=== PATIENT | female | born 1990 | race Caucasian/White ===

== ENCOUNTER → 2019-07-09 10:28 | Outpatient (CLI) | payer BC, SELFPAY ==
[2019-07-09 08:43] VITALS: BMI 28.4
[2019-07-09 11:06] LABS: Absolute Lymphocyte Count 1.08 X10^3/uL (0.83-4.51); Absolute Neutrophil Count 4.6 X10^3/uL (2.0-7.7); Basophil# 0.04 X10^3/uL; Basophil% 0.7 % (0-1); Eosinophil# 0.01 X10^3/uL; Eosinophils% 0.2 % (0-5); Hematocrit 36.1 % (37-47); Hemoglobin 11.9 g/dL (12.0-15.0); Lymphocyte # 1.08 X10^3/ul (4.0); Lymphocyte % 17.8 % (19-41); Mean Corpuscular Hgb 28.1 pg (27.0-32.0); Mean Corpuscular Volume 85.1 fL (81-99); Mean Platelet Vol. 9.1 fl (6.2-12.0); Monocyte# 0.28 X10^3/uL; Monocyte% 4.6 % (0-10); NRBC Flagged by Analyzer 0 % (0-5); Neutrophil # 4.64 X10^3/uL (2.7-7.7); Neutrophil % 76.4 % (47-70); Platelet Count 207 K/mm3 (150-450); RBC Distribution Width CV 12.7 % (11.6-14.6); RBC Distribution Width SD 39.1 fl (35.1-43.9); Red Blood Count 4.24 M/mm3 (4.2-5.4); White Blood Count 6.1 K/mm3 (4.4-11.0)
[2019-07-09 12:05] LABS: HIV - WCH Non-Reactive (Nonreactive); Hepatitis B Surface Antigen Non-Reactive (Nonreactive); Hepatitis C Antibody Non-Reactive (Nonreactive); Rubella IgG 44.3 IU/mL
[2019-07-09 18:00] LABS: Amphetamine Urine VISTA NEGATIVE (<1000 ng/mL); Barbiturate Urine VISTA NEGATIVE (< 200 ng/mL); Benzodiazepine Urine VISTA NEGATIVE (< 200 ng/mL); Cocaine Urine VISTA NEGATIVE (< 300 ng/mL); Ecstacy Urine VISTA NEGATIVE (< 500 ng/mL); Methadone Urine VISTA NEGATIVE (< 300 ng/mL); PCP Urine VISTA NEGATIVE (< 25 ng/mL); THC Urine VISTA NEGATIVE (< 50 ng/mL); Vista UDS pH Range 5
[2019-07-09 18:40] LABS: Chlamydia Trachomatis by PCR Negative (Negative); Neisserai gonorrhoeae by PCR Negative (Negative); Probe Check PASS; Sample Adequacy Control PASS; Specimen Processing Control PASS
[2019-07-12 00:26] LABS: Rapid Plasmin Reagin (RPR) NONREACTIVE (NONREACTIVE)
== END ==
PROVIDERS: Referring Provider Obstetrics & Gynecology; Visit Provider Obstetrics & Gynecology
DX: Z34.00 Encounter for supervision of normal first pregnancy, unspecified trimester (principal)
CPT/HCPCS: 36415; 80307; 85025; 86592; 86703; 86762; 86803; 86850; 86900; 86901; 87086; 87088; 87340; 87491; 87591

== ENCOUNTER → 2019-10-29 15:54 | Outpatient (CLI) | payer BC, SELFPAY ==
[2019-10-29 15:29] VITALS: BMI 28.4
== END ==
PROVIDERS: Referring Provider Obstetrics & Gynecology; Visit Provider Obstetrics & Gynecology
DX: O35.9XX0 Maternal care for (suspected) fetal abnormality and damage, unspecified, not applicable or unspecified (principal); Z3A.00 Weeks of gestation of pregnancy not specified
CPT/HCPCS: 36415

== ENCOUNTER → 2019-11-30 08:45 | Outpatient (CLI) | payer BC, SELFPAY ==
[2019-11-30 08:41] VITALS: BMI 28.4
[2019-11-30 10:10] LABS: Absolute Lymphocyte Count 0.84 X10^3/uL (0.83-4.51); Absolute Neutrophil Count 6.1 X10^3/uL (2.0-7.7); Basophil# 0.02 X10^3/uL; Basophil% 0.3 % (0-1); Eosinophil# 0.06 X10^3/uL; Eosinophils% 0.8 % (0-5); Hematocrit 31.5 % (37-47); Hemoglobin 10.3 g/dL (12.0-15.0); Lymphocyte # 0.84 X10^3/ul (4.0); Lymphocyte % 11.4 % (19-41); Mean Corp Hgb Conc 32.7 g/dL (32-36); Mean Corpuscular Hgb 29.1 pg (27.0-32.0); Mean Platelet Vol. 9.2 fl (6.2-12.0); Monocyte# 0.31 X10^3/uL; Monocyte% 4.2 % (0-10); NRBC Flagged by Analyzer 0 % (0-5); Neutrophil # 6.09 X10^3/uL (2.7-7.7); Neutrophil % 82.4 % (47-70); Platelet Count 174 K/mm3 (150-450); RBC Distribution Width CV 12.5 % (11.6-14.6); RBC Distribution Width SD 40.9 fl (35.1-43.9); Red Blood Count 3.54 M/mm3 (4.2-5.4); White Blood Count 7.4 K/mm3 (4.4-11.0)
[2019-11-30 10:48] LABS: Glucose Challenge Gest 1H 50g 129 mg/dL (70-140)
[2019-11-30 14:35] LABS: Protein, Urine (Random) 19.3 mg/dL (<11.9); Protein:Creat Ratio 213 mg/g CRE (0-200)
== END ==
PROVIDERS: PCP Family Medicine; Referring Provider Obstetrics & Gynecology; Visit Provider Obstetrics & Gynecology
DX: Z34.90 Encounter for supervision of normal pregnancy, unspecified, unspecified trimester (principal); Z34.00 Encounter for supervision of normal first pregnancy, unspecified trimester
CPT/HCPCS: 36415; 82570; 82950; 84156; 85025

== ENCOUNTER → 2019-12-28 08:25 | Outpatient (CLI) | payer BC, SELFPAY ==
[2019-12-28 08:01] VITALS: BMI 34.5
[2019-12-28 08:41] LABS: Absolute Lymphocyte Count 0.85 X10^3/uL (0.83-4.51); Basophil# 0.02 X10^3/uL; Basophil% 0.3 % (0-1); Eosinophil# 0.05 X10^3/uL; Eosinophils% 0.8 % (0-5); Hematocrit 33.3 % (37-47); Hemoglobin 10.7 g/dL (12.0-15.0); Lymphocyte # 0.85 X10^3/ul (4.0); Lymphocyte % 13.2 % (19-41); Mean Corp Hgb Conc 32.1 g/dL (32-36); Mean Corpuscular Hgb 28.6 pg (27.0-32.0); Mean Platelet Vol. 9.2 fl (6.2-12.0); Monocyte% 6.2 % (0-10); NRBC Flagged by Analyzer 0 % (0-5); Neutrophil # 5.04 X10^3/uL (2.7-7.7); Neutrophil % 78.6 % (47-70); Platelet Count 149 K/mm3 (150-450); RBC Distribution Width CV 13.2 % (11.6-14.6); RBC Distribution Width SD 43.3 fl (35.1-43.9); Red Blood Count 3.74 M/mm3 (4.2-5.4); White Blood Count 6.4 K/mm3 (4.4-11.0)
== END ==
PROVIDERS: PCP Family Medicine; Referring Provider Obstetrics & Gynecology; Visit Provider Obstetrics & Gynecology
DX: O99.012 Anemia complicating pregnancy, second trimester (principal); Z3A.00 Weeks of gestation of pregnancy not specified
CPT/HCPCS: 36415; 85025

== ENCOUNTER → 2020-01-25 16:41 | Outpatient (CLI) | payer BC, SELFPAY ==
[2020-01-25 08:04] VITALS: BMI 36.2
== END ==
PROVIDERS: Referring Provider Obstetrics & Gynecology; Visit Provider Obstetrics & Gynecology
DX: O09.93 Supervision of high risk pregnancy, unspecified, third trimester (principal); Z3A.00 Weeks of gestation of pregnancy not specified
CPT/HCPCS: 87077; 87081; 87186

== ENCOUNTER → 2020-01-31 08:22 | Outpatient (CLI) | payer BC, SELFPAY ==
[2020-01-31 08:04] VITALS: BMI 28.4
[2020-01-31 08:38] LABS: Absolute Lymphocyte Count 0.96 X10^3/uL (0.83-4.51); Basophil# 0.02 X10^3/uL; Basophil% 0.3 % (0-1); Eosinophil# 0.06 X10^3/uL; Eosinophils% 0.9 % (0-5); Hematocrit 33.5 % (37-47); Hemoglobin 10.7 g/dL (12.0-15.0); Lymphocyte # 0.96 X10^3/ul (4.0); Lymphocyte % 15.1 % (19-41); Mean Corp Hgb Conc 31.9 g/dL (32-36); Mean Corpuscular Hgb 28.2 pg (27.0-32.0); Mean Corpuscular Volume 88.2 fL (81-99); Mean Platelet Vol. 9.5 fl (6.2-12.0); Monocyte# 0.31 X10^3/uL; Monocyte% 4.9 % (0-10); NRBC Flagged by Analyzer 0 % (0-5); Neutrophil # 4.97 X10^3/uL (2.7-7.7); Neutrophil % 78.2 % (47-70); Platelet Count 153 K/mm3 (150-450); RBC Distribution Width CV 13.3 % (11.6-14.6); RBC Distribution Width SD 43.2 fl (35.1-43.9); White Blood Count 6.4 K/mm3 (4.4-11.0)
== END ==
PROVIDERS: Obstetrics & Gynecology; PCP Family Medicine; Referring Provider Nurse Practitioner Women's Health; Visit Provider Nurse Practitioner Women's Health
DX: O09.93 Supervision of high risk pregnancy, unspecified, third trimester (principal); Z3A.00 Weeks of gestation of pregnancy not specified
CPT/HCPCS: 36415; 85025

== ENCOUNTER → 2020-02-13 09:10 | Outpatient (CLI) | payer BC, SELFPAY ==
[2020-01-31 08:04] VITALS: BMI 28.4
[2020-02-08 08:06] VITALS: BMI 28.4
== END ==
PROVIDERS: PCP Family Medicine; Referring Provider Obstetrics & Gynecology; Visit Provider Obstetrics & Gynecology
DX: Z11.59 Encounter for screening for other viral diseases (principal)
CPT/HCPCS: 87635; C9803; U0003

== ENCOUNTER 2020-02-19 | Inpatient (IN) | payer BC, SELFPAY ==
[2020-01-31 08:04] VITALS: BMI 28.4
[2020-02-15 08:39] VITALS: BMI 28.4
[2020-02-19] VITALS (49 sets, daily range): BP systolic 102–145; BP diastolic 54–94; PULSE 71–127; RESP 16–18; TEMP 36.2–37.3; O2SAT 92–100; BMI 37.5
[2020-02-19] MEDS: Lactated Ringers 1,000 ML 200 ML IV ×2 (00:30→08:09)
[2020-02-19] MEDS: Lactated Ringers 500 ML 999 ML IV ×2 (00:45→05:32)
[2020-02-19 00:49] LABS: Absolute Lymphocyte Count 1.16 X10^3/uL (0.83-4.51); Absolute Neutrophil Count 4.7 X10^3/uL (2.0-7.7); Basophil# 0.02 X10^3/uL; Basophil% 0.3 % (0-1); Eosinophil# 0.04 X10^3/uL; Eosinophils% 0.6 % (0-5); Hematocrit 31.7 % (37-47); Hemoglobin 10.1 g/dL (12.0-15.0); Lymphocyte # 1.16 X10^3/ul (4.0); Lymphocyte % 17.6 % (19-41); Mean Corp Hgb Conc 31.9 g/dL (32-36); Mean Corpuscular Hgb 28.1 pg (27.0-32.0); Mean Corpuscular Volume 88.3 fL (81-99); Mean Platelet Vol. 10.5 fl (6.2-12.0); Monocyte# 0.53 X10^3/uL; Monocyte% 8.1 % (0-10); NRBC Flagged by Analyzer 0 % (0-5); Neutrophil # 4.73 X10^3/uL (2.7-7.7); Neutrophil % 71.9 % (47-70); Platelet Count 133 K/mm3 (150-450); RBC Distribution Width CV 13.4 % (11.6-14.6); RBC Distribution Width SD 43.7 fl (35.1-43.9); Red Blood Count 3.59 M/mm3 (4.2-5.4); White Blood Count 6.6 K/mm3 (4.4-11.0)
[2020-02-19] MEDS: fentaNYL-bupivacaine (epidural) 100 ML BAG EPIDURAL ×3 (01:58→13:37)
[2020-02-19] MEDS: 0.9% Saline Lock 10 ML Syringe IV ×2 (04:15→21:34)
[2020-02-19] MEDS: Ondansetron 4 MG/2 ML Vial IV (04:15)
--- NOTE | 2020-02-19 04:48 | PCM.RX.CS ---
Consult Pharmacy has been consulted to manage selected antiobiotic: Vancomycin Type of Consult: New start Suspected Infection: Other Goal Trough: 10-15 mcg/mL Pharmacy Plan for Drug Dosing: Pharmacy Service will continue to monitor and adjust dosing as required. Medications Vancomycin HCl 2,000 mg/ (Sodium Chloride) 540 mls @ 250 mls/hr IV Q8H WILVER Last Admin: 02/19/20 04:45 Dose: Infused Documented by: Follow-Up Labs: Trough Vancomycin Labs to be done on [date and time ordered]: 02/19 @ 0030
--- NOTE | 2020-02-19 07:23 | HP.PCM_ITS ---
- Problem List (1) 38 weeks gestation of Status: Acute Comment: COVID testing ordered sc (2) Anemia affecting in second trimester Status: Acute Comment: iron. stable. (3) pyelectasis Status: Acute Comment: Left renal mild pelviectasis with AP diameter at 5.6mm. 28 week FU US/ Treatment Center. 28 wk result UTD A2-3, FU q4wks Biometric parameters and renals @ treatment center, FU stable, amoxicillin 10mg/kg per day, renal US within 1 mo after (4) GBS (group B Streptococcus carrier), +RV culture, currently Status: Acute Comment: allergy to PCN, resistant to clinda - vanc for ppx in labor (5) Influenza vaccine administered Status: Acute Comment: 01/11/2020 (6) Status: Acute Qualifiers: Comment: NIPT low risk. declined carrier and NTD testing; anatomy scan reviewed. (7) Supervision of high risk in third trimester Status: Acute Comment: PRR KEMAR: 02/15/2020 boy [place] Spouse: Daniel (8) Susceptible to varicella (non-immune), currently Status: Acute Comment: received vaccine in past, plan vaccine again History and Physical Date of Admission: 02/19/20 Intake Vital Signs 02/15/20 Height 5 ft 6 in 02/15/20 Weight: 246 lb 02/15/20 BMI 39.6 02/15/20 BP 138/70 H Intake Visit Reasons: 39WK OB Sales Support Assistant Required: No Is patient in pain?: No Allergies amoxicillin Allergy (Intermediate, Verified 02/15/20 08:05) Rash Medications multivitamin no.47-iron fum 27 mg-folate no.1 1 mg-dha 300 mg capsule cap PO 07/09/19 [History Confirmed 02/15/20] Last Menstral Period: 05/11/19 Zika: Zika virus screening: Negative : No PFSH PFSH Medical History ADHD (Acute) Surgical History No significant past surgical history (Acute) Family History Father Hypertension CVA (cerebral vascular accident) Uncle Cancer Leukemia Social History (Updated 02/15/20 @ 08:[address] Ally Tony MD) adopted: No household members: spouse housing: apartment current occupational status: employed current occupation: [employer] current occupational exposures/hazards: No pets and animals: Yes history of recent travel: No sexually active: Yes Smoking Status: Never smoker second hand exposure: No alcohol intake: current alcohol intake frequency: holidays/special occasions only details: Not while pregancy substance use type: does not use seatbelt use: always do you feel safe at home: Yes additional social history: Daniel- FA Pregancy History 1 Elective abortions Hx Para Spontaneous abortions Hx # Term Pregnancies Ectopic pregnancies Hx # Pregnancies Multiple births # of living children HPI 39WK OB : Details: LISANDRA WALLACE is a 29 year old @ 40 weeks presents IAL with SROm clear fluid, increasing contractions. She has made cervicla change from 3-5 cm. Her has been complicated by mild pyelectasis and increased abdominal circumference. OB Visit KEMAR Calculator Estimated Delivery Date Method Current WG Current Estimate 02/15/20 LMP (Certain) 40w 0d Other Estimates 02/16/20 Ultrasound #1 39w 6d Expected Delivery Route/Plan Labor Preferences- CB/BF classes: january labor support person: daniel labor intervention preferences: open to all, baseline minimal pain management options preferred: epidural cut cord/dad catch: cut : yes PP control planned:pill discussed possible routes of delivery and associated risks: discussed possible delivery modalities and possible indications for each including R/B/A of , VAVD, and CS. questions answered. special requests: none . Specific Issue/Plans flu vaccine: given tdap vaccine: given rhogam: na LARC form signed: declined movement and labor precautions reviewed. Problem list reviewed and updated with the most current plan of care details and appropriate orders placed. Relevant counseling for the gestational age provided. Continue routine care and follow up unless otherwise noted in visit notes/problem list details Initial Weight: 187 lb Date EGA Weight BP Urine Prot Glucose FHR FuHt Pres Dilation Effaced St Visit Note 08/08/19 12w 5d 188 lb (+16 oz) 126/84 Negative Negative 156 MH-No Vb, LOF. Reviewed normal PNL. Will need varicella vaccine p delivery. Still considering NIPT. 09/05/19 16w 5d 193 lb 6 oz (+6 lb 6 oz) 118/76 Negative Negative 145 Sm- no vb lof cramping. scheduled anatomy scan. 10/03/19 20w 5d 201 lb (+14 lb) 124/80 Negative Negative 156 20 MH-had a pinpoint spot of blood on tissue yesterday morning and none since. No cramping,lof. Good FM. Reassured. Anatomy US with MFM tomorrow 10/29/19 24w 3d 215 lb (+28 lb) 120/66 Negative Negative 150 25 SM- no vb lof good fm no reg ctx 11/30/19 29w 0d 220 lb 6 oz (+33 lb 6 oz) 144/78 128/70 Trace Negative 140 30 SM- no vb lof good fm no regular ctx SM- no vb lof good fm no regular ctx. discussed nutrition in . initial bp elevated- repeat WNL 12/28/19 33w 0d 227 lb 6 oz (+40 lb 6 oz) 122/78 Negative Negative 140 33 SM- no vb lof good fm no regular ctx 01/11/20 35w 0d 234 lb (+47 lb) 150/72 126/84 140 37 SM- no vb lof good fm no rgular ctx, discussed labor preferences. flu vaccine 01/25/20 37w 0d 238 lb 6 oz (+51 lb 6 oz) 130/82 Negative Negative 135 37 Cephalic 1 60 -2 GP - no LOF, vb, DFM. Mor e pressure but no reg ctx. 01/31/20 37w 6d 241 lb (+54 lb) 136/80 Negative Negative 156 38 Cephalic 1.5 60 -2 MH-NO VB, LOF. Mild edema bilat feet. NO NORIEGA. Good FM. MH-NO VB, LOF. Mild edema bilat feet. NO NORIEGA. Good FM. Reviewed +GBS. CBC 02/08/20 39w 0d 242 lb (+55 lb) Negative Negative 150 40 Cephalic 2 60 -2 Sm- no vb lof good fm no regular ctx. covid testing neg. plan repeat covid this week 02/15/20 40w 0d 246 lb (+59 lb) 138/70 Negative Negative 125 42 Cephalic 2.5 60 -2 SM- no vb lof good fm no regular ctx. discussed exp mgt and IOL 41 weeks ACOG First Trimester First Trimester: Desire for , Alcohol, Tobacco Cessation, Illicit/Recreational Drug/Substance Use, Intimate Partner Violence, Barriers to care, Unstable Housing, Communication Barriers, Environmental/Work Hazards, Anticipated Course of Care, Toxoplasmosis Precations, Use of Any medications, Sexual activity, Exercise, Dental Care, Sauna/Hot tub use, Seat Belt use, Childbirth classes/Hospital facilities, , Travel, Indications for US and Screening for Aneuploidy Second Trimester Second Trimester: Signs and Symptoms of Labor, Selecting a care provider, Reproductive Life Planning, Care Planning, Tobacco Cessation, Depression/Anxiety and Intimate Partner Violence Third Trimester Third Trimester: Pain Management Plans, Labor support person(s), Immediate Larc, Movement Monitoring and Feeding Yes ; discussed Trial of Labor after Counseling or discussed Circumcision preference Diagnostics Diagnostics Diagnostics Glucose 1 Hr 50 gm 129 mg/dL (70-140) 11/30/19 Hgb 10.7 g/dL (12.0-15.0) L 01/31/20 Hct 33.5 % (37-47) L 01/31/20 Details: HIV: Urine Culture: Sequential Screen: NIPT Screen: ROS Const Reports system reviewed and no additional complaints, except as docu Card Reports system reviewed and no additional complaints, except as docu Resp Reports system reviewed and no additional complaints, except as docu GI Reports system reviewed and no additional complaints, except as docu, Reports nausea Reports system reviewed and no additional complaints, except as docu Musc Reports system reviewed and no additional complaints, except as docu Exam Const General: cooperative, healthy appearing, comfortable, anxious [facility] Head: normal to inspection Nose: external nose normal Face and sinus: normal facial exam Neck Neck: normal visual inspection, full ROM, no lymphadenopathy Thyroid: thyroid normal Chest Chest palpation & inspection: normal inspection of the chest Resp Effort & Inspection: normal respiratory effort GI Inspection: normal to inspection Palpation: soft, other (gravid uterus) Other: infant vertex and large size for gestational age Other: Cervical Exam: Extrem General: pedal edema Results POC Urinalysis 2 Dip (Clinic) Office Urine Glucose Negative Last Edit by Steffany Pearl on 02/15/20 08:09 Office Urine Protein Negative Last Edit by Steffany Pearl on 02/15/20 08:09 Assessment & Plan Problems 1. Z34.90 NIPT low risk. declined carrier and NTD testing; anatomy scan reviewed. 2. Susceptible to varicella (non-immune), currently O09.899; Z28.3 received vaccine in past, plan vaccine again 3. pyelectasis Left renal mild pelviectasis with AP diameter at 5.6mm. 28 week FU US/ Treatment Center. 28 wk result UTD A2-3, FU q4wks Biometric parameters and renals @ treatment center, FU stable, amoxicillin 10mg/kg per day, renal US within 1 mo after 4. Anemia affecting in second trimester O99.012 iron. stable. 5. Supervision of high risk in third trimester O PRR KEMAR: 02/15/2020 [place] Spouse: Daniel 6. Influenza vaccine administered Z23 01/11/2020 7. GBS (group B Streptococcus carrier), +RV culture, currently O99.820 allergy to PCN, resistant to clinda - vanc for ppx in labor 8. 38 weeks gestation of Z3A.38 COVID testing ordered sc Plan Patient presents IAL, plan management for Pain management: plans epidural. GBS pos- plan vancomycin Management of any complications: pyelecatsis, EFW approx 4250g I have reviewed the [facility] and made any clinically relevant updates. Orders Orders: POC Urinalysis 2 Dip (Clinic) Today Coding Level of Care Code OB Routine Diagnoses Z34.90 Susceptible to varicella (non-immune), currently O09.899; Z28.3 pyelectasis Anemia affecting in second trimester O99.012 Supervision of high risk in third trimester O Influenza vaccine administered Z23 GBS (group B Streptococcus carrier), +RV culture, currently O99.820 38 weeks gestation of Z3A.38
--- NOTE | 2020-02-19 09:08 | PCM.PN.BLA ---
STROKE Vital Signs/Narrative: Vital Signs Pulse BP Pulse Ox 02/19/20 08:09 83 126/66 H 02/19/20 07:26 99 100 02/19/20 07:25 88 143/72 H 02/19/20 05:52 105 H 98
[2020-02-19] MEDS: Sodium Citrate/Citric Acid 30 ML UDC PO (15:04)
[2020-02-19] MEDS: Cefazolin 2 GM in 0.9% Normal Saline 100 ML IV (15:15)
--- NOTE | 2020-02-19 16:38 | OP.PCM_ITS ---
Problem List (1) 38 weeks gestation of Status: Acute Comment: COVID testing ordered sc (2) Anemia affecting in second trimester Status: Acute Comment: iron. stable. (3) pyelectasis Status: Acute Comment: Left renal mild pelviectasis with AP diameter at 5.6mm. 28 week FU US/ Treatment Center. 28 wk result UTD A2-3, FU q4wks Biometric parameters and renals @ treatment center, FU stable, amoxicillin 10mg/kg per day, renal US within 1 mo after (4) GBS (group B Streptococcus carrier), +RV culture, currently Status: Acute Comment: allergy to PCN, resistant to clinda - vanc for ppx in labor (5) Influenza vaccine administered Status: Acute Comment: 01/11/2020 (6) Status: Acute Qualifiers: Comment: NIPT low risk. declined carrier and NTD testing; anatomy scan reviewed. (7) Supervision of high risk in third trimester Status: Acute Comment: PRR KEMAR: 02/15/2020 boy [place] Spouse: Isra (8) Susceptible to varicella (non-immune), currently Status: Acute Comment: received vaccine in past, plan vaccine again (9) Failure of descent in labor, delivered, current hospitalization Status: Acute Delivery Classification: GIANNA Final KEMAR: 02/15/20 Gestational age: 40 Weeks and 4 Days watershed engineer: Faye Stringer Type of Anesthesia:: Epidural Special Medications: none Implants Used: none Date of Procedure: 02/19/20 Pre-Operative Diagnosis: Arrest of descent, suspected large for gestational age Post-Operative Diagnosis: Same Indications for : Arrrest of Descent Description of Procedure: 29-year-old G1, P0 at 40 weeks 4 days presents with spontaneous labor and spontaneous rupture membranes. Patient presented 3 cm and proceeded to complete dilation in an appropriate and timely fashion without augmentation. Patient labor down for an hour and then began pushing. Epidural was turned down to aid with maternal effort and was confirmed to be effective. head was at the +1 station with a small amount of capit prior to pushing and after 4 hours the skull was still at the +1 station with a significant amount of capit. Arrest of descent was diagnosed and discussed with the patient and recommended to proceed with primary to which the patient and her agreed. The patient was placed in the dorsal supine position with leftward tilt. Patient was prepped and draped in the normal sterile fashion. Pfannenstiel skin incision was made with the scalpel and carried through to the underlying layer of fascia with the scalpel. Fascia was nicked in the midline and the incision extended laterally. The rectus bellies were dissected off superiorly and inferiorly with out complication both sharply and bluntly. The peritoneum was entered digitally. The incision was stretched and a low transverse uterine incision was made with the scalpel. The infant's head was delivered atraumatically followed by the anterior and posterior shoulders without complication the rest of the infant delivered. The cord was clamped and cut and the infant was handed off to awaiting nurse. The placenta was delivered spontaneously immediately following and was noted to be intact and have a three- vessel cord. The uterus was exteriorized cleared of all clots and debris, and the incision was closed in a double layer closure using #1 Monocryl. The ovaries and fallopian tubes were noted to be within normal limits. The uterus was returned to the maternal abdomen and gutters were cleared of all clots and debris. The peritoneum was closed with 3-0 Monocryl in a running fashion. Gloves were changed prior to fascial closure. Fascia was closed with 0 PDS in a running fashion. Subcutaneous tissue was copiously irrigated and the skin was closed with 3-0 Monocryl in a subcuticular fashion. Mepilex dressing was applied without complication. Patient was taken to recovery in stable condition. It was discussed with the patient that based on the clinical information obtained during this encounter, combined with her history, at this time I would recommend cesareans unless a drastically smaller estimated weight is suspected for future deliveries if further pregnancies are desired. Amniotic Membrane Rupture Type: Spontaneous Amniotic Fluid Description: Clear Placenta Disposition: [facility] Drain: Perales to straight drain Fluids Replaced: Crystalloid Cord Entanglement: None Cord Vessel Description: 3 Vessels Esitmated Blood Loss (ml): 900 Infant Gender: Male Delayed cord clamping: Yes Antibiotic Given: Ancef 2 grams IV x1, Zithromax 500 mg/5 mL X1 Pt instructed on risks of surgery: Bleeding, Anesthesia Risks, Infection, Need for Future C-Sections, Injury to surrounding structure(s) including bowel and bladder Complications: None - Admit VTE Documentation VTE Present on Admission: No VTE Mechan Device Prophylaxis: SCD's Multi Select Codes - Urinary/Genital Urinary/Genital CPT Codes: 62479 Delivery [facility]
[2020-02-19] MEDS: Oxytocin 30 units/NS 500 ml 30 UNITS/500 ML IV.SOLN 167 UNITS IV (17:03)
[2020-02-19] MEDS: Methylergonovine 0.2 MG/ML Ampul IM (17:06)
[2020-02-19] MEDS: Acetaminophen 500 MG Tablet 1000 MG PO (19:02)
--- NOTE | 2020-02-19 19:29 | NURSING ---
flory pad and under [pad changed, eugenio mcfarlane shown bleeding and swelling.
[2020-02-19] MEDS: Lactated Ringers 1,000 ML 100 ML IV (20:15)
[2020-02-19] MEDS: Ketorolac 30 MG/ML Syringe IV (21:34)
--- NOTE | 2020-02-19 23:21 | NURSING ---
Call placed to Dr. Tony about patient's mepilex dressing as it is about 50% saturated with sanguineous drainage. Per Dr. Tony, change mepilex dressing, apply ABD pads, and apply pressure with paper tape hip to hip. Then, put abdominal binder on patient as well per Dr. Tony. Dressing was changed, ABD pads, paper tape, and abdominal binder applied as ordered by Dr. Tony. Upon removal of old dressing, 2 steri strips came off. No active bleeding noted. Incision was without redness or swelling and well approximated.
[2020-02-20] VITALS (11 sets, daily range): BP systolic 101–132; BP diastolic 58–77; PULSE 75–102; RESP 16–18; TEMP 36.2–37; O2SAT 95–100
[2020-02-20] MEDS: Acetaminophen 500 MG Tablet 1000 MG PO ×4 (00:52→19:59)
[2020-02-20] MEDS: 0.9% Saline Lock 10 ML Syringe IV ×2 (03:50→10:52)
[2020-02-20] MEDS: Ketorolac 30 MG/ML Syringe IV ×2 (03:50→10:51)
[2020-02-20] MEDS: Enoxaparin 40 MG/0.4 ML Syringe SC ×2 (04:15→10:51)
[2020-02-20 04:40] LABS: Hematocrit 25.6 % (37-47); Hemoglobin 8.3 g/dL (12.0-15.0); Mean Corp Hgb Conc 32.4 g/dL (32-36); Mean Corpuscular Hgb 28.9 pg (27.0-32.0); Mean Corpuscular Volume 89.2 fL (81-99); Mean Platelet Vol. 10.3 fl (6.2-12.0); Platelet Count 107 K/mm3 (150-450); RBC Distribution Width CV 13.9 % (11.6-14.6); RBC Distribution Width SD 45.1 fl (35.1-43.9); Red Blood Count 2.87 M/mm3 (4.2-5.4); White Blood Count 7.7 K/mm3 (4.4-11.0)
--- NOTE | 2020-02-20 07:33 | PCM.PN.OB ---
Patient Problems: Active and Suspected Problems (Last Reviewed 02/15/20 @ 08:06 by Steffany Pearl) Failure of descent in labor, delivered, current hospitalization (Acute) 38 weeks gestation of (Acute) COVID testing ordered sc GBS (group B Streptococcus carrier), +RV culture, currently (Acute) allergy to PCN, resistant to clinda - vanc for ppx in labor Influenza vaccine administered (Acute) 01/11/2020 Supervision of high risk in third trimester (Acute) PRR KEMAR: 02/15/2020 boy [place] Spouse: Isra Anemia affecting in second trimester (Acute) iron. stable. pyelectasis (Acute) Left renal mild pelviectasis with AP diameter at 5.6mm. 28 week FU US/ Treatment Center. 28 wk result UTD A2-3, FU q4wks Biometric parameters and renals @ treatment center, FU stable, amoxicillin 10mg/kg per day, renal US within 1 mo after Susceptible to varicella (non-immune), currently (Acute) received vaccine in past, plan vaccine again (Acute) NIPT low risk. declined carrier and NTD testing; anatomy scan reviewed. Subjective: patient recovering well, denies CP, SOB, N, or V. patient is ambulating, voiding ,tolerating adequate po, and pain is controlled with oral medications. - Physical Exam Vitals/I&O's: Vital Signs Temp Pulse Resp BP Pulse Ox 98.6 F 102 H 16 101/58 L 95 02/20/20 03:55 02/20/20 06:14 02/20/20 04:41 02/20/20 03:55 02/20/20 06:14 Oxygen Delivery Method Room Air Weight: 247 lb Body Mass Index (BMI) 37.5 Intake and Output for Last 24 Hours 02/18/20 02/19/20 02/20/20 23:59 23:59 23:59 Intake Total 7461.67 / 7461.67 958.33 / 958.33 Output Total 2350 / 2350 1900 / 1900 Balance 5111.67 / 5111.67 -941.67 / -941.67 General: Alert, Oriented x3 Laboratory Results 02/20/20 04:15: WBC 7.7, RBC 2.87 L, Hgb 8.3 L, Hct 25.6 L, MCV 89.2, MCH 28.9, MCHC 32.4, RDW Std Deviation 45.1 H, RDW Coeff of Arvinder 13.9, Plt Count 107 L, MPV 10.3 Current Medications Acetaminophen (Acetaminophen 500 Mg Tablet) 1,000 mg PO Q6 [facility] Last Admin: 02/20/20 06:44 Dose: 1,000 mg Documented by: Bisacodyl (Bisacodyl 10 Mg Suppository) 10 mg RECTAL UD PRN PRN Reason: If no BM Diphenhydramine HCl (Diphenhydramine 25 Mg Capsule) 25 mg PO Q6H PRN PRN PRN Reason: ITCHING Stop: 02/20/20 16:30 Enoxaparin Sodium (Enoxaparin 40 Mg/0.4 Ml Syringe) 40 mg SC DAILY [facility] Last Admin: 02/20/20 04:15 Dose: 40 mg Documented by: Ephedrine Sulfate () 10 mg IV Q10M PRN PRN Reason: hypotension Ephedrine Sulfate () 10 mg IM Q30M PRN PRN Reason: hypotension Fentanyl/Bupivacaine/Sodium Chlor () 0 ml EPIDURAL UD WILVER; Protocol Last Admin: 02/19/20 13:37 Dose: 100 ml Documented by: Hydrocortisone (Hydrocortisone 2.5% Crm) 1 applic TOPICAL TID PRN PRN; Protocol PRN Reason: Discomfort Ketorolac Tromethamine (Ketorolac 30 Mg/Ml Syringe) 30 mg IV Q6H WILVER Stop: 02/20/20 16:01 Last Admin: 02/20/20 03:50 Dose: 30 mg Documented by: Methylergonovine Maleate (Methylergonovine 0.2 Mg/Ml Ampul) 0.2 mg IM X1 PRN PRN Reason: Uterine Atony Last Admin: 02/19/20 17:06 Dose: 0.2 mg Documented by: Nalbuphine HCl (Nalbuphine 10 Mg/Ml Ampul) 5 mg IV Q3H PRN PRN PRN Reason: ITCHING Stop: 02/20/20 16:30 Naloxone HCl (Naloxone 0.4 Mg/Ml Syringe) 0.02 mg IV Q1M PRN PRN Reason: RR <10 and pt unresponsive Naproxen (Naproxen 250 Mg Tablet) 500 mg PO Q8 WILVER Ondansetron HCl (Ondansetron 4 Mg/2 Ml Vial) 4 mg IV Q4H PRN PRN PRN Reason: Nausea Oxycodone HCl (Oxycodone 5 Mg Tablet) 5 - 10 mg PO Q4H PRN PRN PRN Reason: Pain Score 4-10 Prochlorperazine Edisylate (Prochlorperazine 10 Mg/2 Ml Vial) 10 mg IV Q6H PRN PRN PRN Reason: NAUSEA Senna/Docusate Sodium (Senna/Docusate Sodium 1 Tablet) 0 tablet PO DAILY WILVER Simethicone (Simethicone 80 Mg Tablet) 80 mg PO PCHS PRN PRN Reason: Indigestion/stomach pain Sodium Chloride (0.9% Saline Lock 10 Ml Syringe) 5 - 15 ml IV UD PRN PRN Reason: SALINE FLUSH Last Admin: 02/20/20 03:50 Dose: 10 ml Documented by: Medical Necessity - Tobacco Use Smoking Status: Never smoker Assessment/Plan All Active Problems (Last Reviewed 02/15/20 @ 08:06 by Steffany Pearl) Failure of descent in labor, delivered, current hospitalization (Acute) 38 weeks gestation of (Acute) GBS (group B Streptococcus carrier), +RV culture, currently (Acute) Influenza vaccine administered (Acute) Supervision of high risk in third trimester (Acute) Anemia affecting in second trimester (Acute) pyelectasis (Acute) Susceptible to varicella (non-immune), currently (Acute) (Acute) Supervision of normal first , antepartum (Resolved) Thrombocytopenia (Resolved) s/p LTCS PPD # 1 1. routine post care 2. breast feeding- support given 3. rh positive 4. rubella immune
[2020-02-20] MEDS: Senna/Docusate Sodium 1 Tablet PO (10:52)
--- NOTE | 2020-02-20 11:37 | NURSING ---
Dr Tony notified of lovenox given at 0451 and then again at 1051 today. It is only 7 hours apart. She is ok with it and no further action needs to be taken. pt to get again tomorrow morning at 1000.
[2020-02-20] MEDS: Naproxen 250 MG Tablet 500 MG PO (17:43)
[2020-02-21] MEDS: Naproxen 250 MG Tablet 500 MG PO ×2 (02:00→11:12)
[2020-02-21] MEDS: Acetaminophen 500 MG Tablet 1000 MG PO ×3 (02:00→14:37)
[2020-02-21 02:02] VITALS: BP 125/81; PULSE 103; RESP 16; TEMP 36.3
--- NOTE | 2020-02-21 08:09 | PCM.PN.OB ---
Patient Problems: Active and Suspected Problems (Last Reviewed 02/15/20 @ 08:06 by Steffany Pearl) Failure of descent in labor, delivered, current hospitalization (Acute) 38 weeks gestation of (Acute) COVID testing ordered sc GBS (group B Streptococcus carrier), +RV culture, currently (Acute) allergy to PCN, resistant to clinda - vanc for ppx in labor Influenza vaccine administered (Acute) 01/11/2020 Supervision of high risk in third trimester (Acute) PRR KEMAR: 02/15/2020 boy Dixie Spouse: Isra Anemia affecting in second trimester (Acute) iron. stable. pyelectasis (Acute) Left renal mild pelviectasis with AP diameter at 5.6mm. 28 week FU US/ Treatment Center. 28 wk result UTD A2-3, FU q4wks Biometric parameters and renals @ treatment center, FU stable, amoxicillin 10mg/kg per day, renal US within 1 mo after Susceptible to varicella (non-immune), currently (Acute) received vaccine in past, plan vaccine again (Acute) NIPT low risk. declined carrier and NTD testing; anatomy scan reviewed. Subjective: Patient doing well without complaints. Tolerating PO. Ambulating and voiding without difficulty. well. Denies chest pain, shortness of breath, calf pain/swelling, fevers, chills, lightheadedness. - Physical Exam Vitals/I&O's: Vital Signs Temp Pulse Resp BP Pulse Ox 97.4 F L 103 H 16 125/81 H 100 02/21/20 02:02 02/21/20 02:02 02/21/20 02:02 02/21/20 02:02 02/20/20 19:48 Oxygen Delivery Method Room Air Weight: 247 lb Body Mass Index (BMI) 37.5 Intake and Output for Last 24 Hours 02/19/20 02/20/20 02/21/20 23:59 23:59 23:59 Intake Total 7461.67 / 7461.67 958.33 / 958.33 Output Total 2350 / 2350 2250 / 2250 Balance 5111.67 / 5111.67 -1291.67 / -1291.67 General: Alert, Oriented x3 Abdomen: Soft, Non-Distended, Appropriate for Gestational Age, - - FF below U. Dressing dry and intact Current Medications Acetaminophen (Acetaminophen 500 Mg Tablet) 1,000 mg PO Q6H [facility] Bisacodyl (Bisacodyl 10 Mg Suppository) 10 mg RECTAL UD PRN PRN Reason: If no BM Enoxaparin Sodium (Enoxaparin 40 Mg/0.4 Ml Syringe) 40 mg SC DAILY [facility] Last Admin: 02/20/20 10:51 Dose: 40 mg Documented by: Ephedrine Sulfate () 10 mg IV Q10M PRN PRN Reason: hypotension Ephedrine Sulfate () 10 mg IM Q30M PRN PRN Reason: hypotension Hydrocortisone (Hydrocortisone 2.5% Crm) 1 applic TOPICAL TID PRN PRN; Protocol PRN Reason: Discomfort Methylergonovine Maleate (Methylergonovine 0.2 Mg/Ml Ampul) 0.2 mg IM X1 PRN PRN Reason: Uterine Atony Last Admin: 02/19/20 17:06 Dose: 0.2 mg Documented by: Naloxone HCl (Naloxone 0.4 Mg/Ml Syringe) 0.02 mg IV Q1M PRN PRN Reason: RR <10 and pt unresponsive Naproxen (Naproxen 250 Mg Tablet) 500 mg PO Q8H [facility] Last Admin: 02/21/20 02:00 Dose: 500 mg Documented by: Ondansetron HCl (Ondansetron 4 Mg/2 Ml Vial) 4 mg IV Q4H PRN PRN PRN Reason: Nausea Oxycodone HCl (Oxycodone 5 Mg Tablet) 5 - 10 mg PO Q4H PRN PRN PRN Reason: Pain Score 4-10 Prochlorperazine Edisylate (Prochlorperazine 10 Mg/2 Ml Vial) 10 mg IV Q6H PRN PRN PRN Reason: NAUSEA Senna/Docusate Sodium (Senna/Docusate Sodium 1 Tablet) 0 tablet PO DAILY [facility] Last Admin: 02/20/20 10:52 Dose: 2 tablet Documented by: Simethicone (Simethicone 80 Mg Tablet) 80 mg PO PCHS PRN PRN Reason: Indigestion/stomach pain Last Admin: 02/21/20 02:00 Dose: 80 mg Documented by: Sodium Chloride (0.9% Saline Lock 10 Ml Syringe) 5 - 15 ml IV UD PRN PRN Reason: SALINE FLUSH Last Admin: 02/20/20 10:52 Dose: 10 ml Documented by: Medical Necessity - Tobacco Use Smoking Status: Never smoker Assessment/Plan All Active Problems (Last Reviewed 02/15/20 @ 08:06 by Steffany Pearl) Failure of descent in labor, delivered, current hospitalization (Acute) 38 weeks gestation of (Acute) GBS (group B Streptococcus carrier), +RV culture, currently (Acute) Influenza vaccine administered (Acute) Supervision of high risk in third trimester (Acute) Anemia affecting in second trimester (Acute) pyelectasis (Acute) Susceptible to varicella (non-immune), currently (Acute) (Acute) Supervision of normal first , antepartum (Resolved) Thrombocytopenia (Resolved) s/p LTCS PPD # 2 1. routine post care 2. breast feeding- support given 3. rh positive 4. rubella immune 5. home today
--- NOTE | 2020-02-21 08:11 | DCINST_ITS ---
Additional Instructions: If you experience any of the following, contact your healthcare provider. * Bleeding that soaks a pad every hour for 2 hours * Fever 100.4 or higher * Unrelieved incision or abdominal pain * Swelling, redness, discharge or bleeding from your incision or episiotomy site * Your incision begins to separate * Problems urinating (including inability to urinate or burning while urinating). * Visual changes * Severe headache * Flu-like symptoms * Pain or redness in one of both of your breasts * Pain, warmth, tenderness or swelling in your legs, especially the calf area * Frequent nausea and vomiting * Symptoms of depression or anxiety If you experience any of the following, call 911 or go to the nearest Emergency Room. * Chest pain * Problems breathing * Seizure activity * Partial or complete paralysis of a body part, slurred speech, weakness or drooping of the face, or a sudden inability to walk or hold your balance Allergies/Adverse Reactions: Allergies amoxicillin Allergy (Intermediate, Verified 02/19/20 00:26) Rash Medications to take at Discharge multivitamin no.47-iron fum 27 mg-folate no.1 1 mg-dha 300 mg capsule 1 cap PO DAILY 07/09/19 Ferrous Sulfate [Iron] 325 mg PO DAILY 02/19/20 Naproxen [Naprosyn] 500 mg PO BID PRN PRN #60 tab 02/21/20 Oxycodone HCl/Acetaminophen [Percocet 5/325] 1 - 2 tablet PO Q4H PRN PRN 3 Days #15 tablet 02/21/20 The following prescriptions were given: Naproxen [Naprosyn] 500 mg PO BID PRN PRN #60 tab PRN Reason: Pain Transmission Status: Pending to [facility] Oxycodone HCl/Acetaminophen [Percocet 5/325] 1 - 2 tablet PO Q4H PRN PRN 3 Days #15 tablet PRN Reason: Pain Transmission Status: Sent to [facility] Follow-Up: Call to make an appointment with your doctor for an incision check in 1-2 weeks. You will also need a 6 week post- follow up appointment. Test results from this visit will be discussed in further detail at your follow- up appointment, if applicable. Primary Care Physician: Lila Santos MD [Primary Care Provider] -
--- NOTE | 2020-02-21 08:11 | PCM.DCCSEC ---
Additional Instructions: If you experience any of the following, contact your healthcare provider. Bleeding that soaks a pad every hour for 2 hours Fever 100.4 or higher Unrelieved incision or abdominal pain Swelling, redness, discharge or bleeding from your incision or episiotomy site Your incision begins to separate Problems urinating (including inability to urinate or burning while urinating). Visual changes Severe headache Flu-like symptoms Pain or redness in one of both of your breasts Pain, warmth, tenderness or swelling in your legs, especially the calf area Frequent nausea and vomiting Symptoms of depression or anxiety If you experience any of the following, call 911 or go to the nearest Emergency Room. Chest pain Problems breathing Seizure activity Partial or complete paralysis of a body part, slurred speech, weakness or drooping of the face, or a sudden inability to walk or hold your balance Allergies/Adverse Reactions: Allergies amoxicillin Allergy (Intermediate, Verified 02/19/20 00:26) Rash Medications to take at Discharge multivitamin no.47-iron fum 27 mg-folate no.1 1 mg-dha 300 mg capsule 1 cap PO DAILY 07/09/19 Ferrous Sulfate [Iron] 325 mg PO DAILY 02/19/20 Naproxen [Naprosyn] 500 mg PO BID PRN PRN #60 tab 02/21/20 Oxycodone HCl/Acetaminophen [Percocet 5/325] 1 - 2 tablet PO Q4H PRN PRN 3 Days #15 tablet 02/21/20 The following prescriptions were given: Naproxen [Naprosyn] 500 mg PO BID PRN PRN #60 tab PRN Reason: Pain Transmission Status: Pending to [facility] Oxycodone HCl/Acetaminophen [Percocet 5/325] 1 - 2 tablet PO Q4H PRN PRN 3 Days #15 tablet PRN Reason: Pain Transmission Status: Sent to [facility] Follow-Up: Call to make an appointment with your doctor for an incision check in 1-2 weeks. You will also need a 6 week post- follow up appointment. Test results from this visit will be discussed in further detail at your follow-up appointment, if applicable. Primary Care Physician: Lila Santos MD [Primary Care Provider] -
[2020-02-21 09:21] VITALS: BP 123/74; PULSE 119; RESP 16; TEMP 36.7; O2SAT 96
[2020-02-21] MEDS: Senna/Docusate Sodium 1 Tablet PO (11:10)
[2020-02-21] MEDS: Enoxaparin 40 MG/0.4 ML Syringe SC (11:11)
[2020-02-21 14:30] VITALS: BP 117/79; PULSE 96; RESP 16; TEMP 36.7; O2SAT 99
== END 2020-02-21 17:50 | disposition home or self-care (01) | DRG 788 ==
PROVIDERS: Admitting Provider Obstetrics & Gynecology; PCP Family Medicine; Referring Provider Obstetrics & Gynecology; Visit Provider Obstetrics & Gynecology
DX: O62.1 Secondary uterine inertia (principal); Z37.0 Single live birth; O99.824 Streptococcus B carrier state complicating childbirth; Z3A.40 40 weeks gestation of pregnancy; O35.8XX0 Maternal care for other (suspected) fetal abnormality and damage, not applicable or unspecified
CPT/HCPCS: 59025; 59050; 85025; 85027; 86850; 86900; 86901; 99218; 99251; J7040; J7120; A4216; G0378; G0463; J2405

== ENCOUNTER 2020-02-25 05:05 | Emergency (ER) | payer BC, SELFPAY ==
[2020-02-19 00:06] VITALS: BMI 37.5
[2020-02-25 05:05] VITALS: BP 154/82; PULSE 72; RESP 15; TEMP 36.9; O2SAT 100; BMI 37.1
[2020-02-25 05:09] VITALS: O2SAT 100
[2020-02-25 05:11] VITALS: BP 147/85
--- NOTE | 2020-02-25 05:18 | ED.RN ---
CALLED [facility] TO SEND PATIENT TO [facility] TRIAGE DUE TO BLOOD PRESSURE. SPOKE WITH DR. BERG. PATIENT IS OKAY TO STAY IN ED. IF BP WOULD GO ABOVE 160/110 THEN PATIENT TO BE SENT TO [facility].
--- NOTE | 2020-02-25 05:25 | EKG12_ITS ---
Test Reason : SOB Blood Pressure : / mmHG Vent. Rate : 074 BPM Atrial Rate : 074 BPM P-R Int : 182 ms QRS Dur : 078 ms QT Int : 376 ms P-R-T Axes : 018 023 016 degrees QTc Int : 417 ms Normal sinus rhythm Possible Left atrial enlargement Borderline ECG Confirmed by DILAN WASHINGTON, JORGE A ([id number]), video editor THEO SAUER ([id number]) on 02/26/2020 8:21:45 AM Referred By: SHEY Confirmed By:JORGE A KONG MD
--- NOTE | 2020-02-25 05:26 | ED.DCSUM_ITS ---
History of Present Illness Chief Complaint: Shortness of Breath Informant: Patient Narrative: Patient stated she is postop day 5-12 from a . She stated she has had some increased swelling in her lower extremities approximately 10 to 20% in the last few days mainly in her feet. She understands this may be normal wanted to get checked out. She stated that tonight she woke up about 4 times and felt short of breath lying flat. This is the first time this is happened since she was discharged from the hospital. She denies any preeclampsia or difficulties with her blood pressure or other complications with her . She had to have a because she was failure to progress. Denies any chest pain. Currently she has no dyspnea while sitting up. Denies any chest pain. Denies any chronic medical problems. Denies any pain in her calfs. Past Medical History - Allergies and Home Meds Allergies/Adverse Reactions: Allergies amoxicillin Allergy (Intermediate, Verified 02/25/20 05:23) Rash Primary Care Physician: Ally Tony MD [STAFF PHYSICIAN] - Prior records reviewed: Yes Past Medical History: None Surgical History: - - Lives: With Family Smoking Status: Never smoker Alcohol: None Drugs: None Review of Systems General: Denies: Chills, Fever, Sweats Eyes: Denies: Visual changes - bilaterally, Diplopia ENT: Denies: Rhinorrhea, Sore throat Cardiovascular: Denies: Chest pain, Palpitations Respiratory: Reports: Dyspnea Gastrointestinal: Denies: Abdominal pain, Nausea, Vomiting, Diarrhea, Melena, Hematochezia Genitourinary: Denies: Dysuria, Hematuria, Frequency Musculoskeletal: Reports: Swelling - Bilateral lower ankles and feet. Denies: Back pain, Extremity Pain Skin: Denies: Rash, Wounds Neurological: Denies: Headache, Weakness, Numbness Physical Exam Vital Signs/Narrative: Vital Signs Temp Pulse Resp BP Pulse Ox 02/25/20 05:11 147/85 H 02/25/20 05:05 98.5 F 72 15 154/82 H 100 General: Well nourished, Well developed, No Acute Distress Head: Normocephalic, Atraumatic Eyes: Perrl, EOMI ENT: Moist mucous membranes, No rhinorrhea Neck: Supple, Nontender Cardiovascular: Regular rate, Regular rhythm, No murmurs Respiratory: No distress, CTA bilaterally, Chest nontender Abdomen: Soft, Nondistended, Normal bowel sounds, - - scar present Back: Nontender, Normal Inspection Extremities: Nontender, Edema - Mild edema in the bilateral feet 1+ pitting distal ankle 1+ pitting. Normal pulses Skin: Normal color, No rash Neurological: Alert, Oriented x3, Cranial nerves II-XII grossly intact, Normal Strength, Normal Sensation Psychological: Normal affect, Normal Mood Diagnostic/Tx/Re-eval - Medical Decision Making Patient resting comfortably. Initial blood pressure 147/85. Discussed with Dr. Tony arrival by staff. She would like the patient kept in the emergency department for work-up. EKG lab work and chest x-ray obtained. KG shows sinus rhythm of 74 with no acute STEMI or ischemic findings. CBC shows a hemoglobin of 7.5. The patient admits to not taking her iron at home. Her hemoglobin was just above 8 when she left after the . Patient's lab work shows a mildly elevated BNP. Troponin negative. D-dimer was elevated but CT angio of the chest shows nothing acute. Chest x-ray was initially obtained for evaluation for pulmonary edema. There is no edema. It was read as a right sided infiltrate however the patient has pectus excavatum and this was shadowing from positioning. There is no infiltrate seen on CTA of the chest. His uric acid is negative. Urine protein is negative. Patient's blood pressure remains in the 140s over 80s. She remains comfortable here at this time. Patient's case is with Dr. Tony. Suspect that the reason she is having dyspnea when laying flat is secondary to her worsening anemia. She will take her iron at home. Blood pressures are only mildly elevated. I do not feel this is a preeclampsia picture. Her liver function tests platelet count urine protein and uric acid are all negative. Patient is in agreement to this. Dr. Cristopher castillo oes not want her on a water pill at this time and will see her in close follow- up. I have a low suspicion for cardiomyopathy. The B natruretic peptide is only mildly elevated ED Disposition - Plan for ED Patient: Disposition: Home or Assisted Living Diagnosis: Postoperative anemia due to acute blood loss, Blood pressure elevated without history of HTN Referrals: Ally Tony MD [STAFF PHYSICIAN] -
[2020-02-25 05:40] LABS: Absolute Lymphocyte Count 0.84 X10^3/uL (0.83-4.51); Absolute Neutrophil Count 4.3 X10^3/uL (2.0-7.7); Basophil# 0.03 X10^3/uL; Basophil% 0.5 % (0-1); Eosinophil# 0.07 X10^3/uL; Eosinophils% 1.2 % (0-5); Hematocrit 24.6 % (37-47); Hemoglobin 7.6 g/dL (12.0-15.0); Lymphocyte # 0.84 X10^3/ul (4.0); Lymphocyte % 14.8 % (19-41); Mean Corp Hgb Conc 30.9 g/dL (32-36); Mean Corpuscular Hgb 28.3 pg (27.0-32.0); Mean Corpuscular Volume 91.4 fL (81-99); Mean Platelet Vol. 9.1 fl (6.2-12.0); Monocyte# 0.35 X10^3/uL; Monocyte% 6.2 % (0-10); NRBC Flagged by Analyzer 0 % (0-5); Neutrophil # 4.31 X10^3/uL (2.7-7.7); Neutrophil % 75.9 % (47-70); Platelet Count 160 K/mm3 (150-450); RBC Distribution Width CV 13.7 % (11.6-14.6); RBC Distribution Width SD 45.3 fl (35.1-43.9); Red Blood Count 2.69 M/mm3 (4.2-5.4); White Blood Count 5.7 K/mm3 (4.4-11.0)
--- NOTE | 2020-02-25 05:45 | RAD_ITS ---
STUDY: X-RAY CHEST REASON FOR EXAM: Female, 29 years old. Woke up shortness of breath ,gasping for air. Recent . TECHNIQUE: PA and lateral chest. COMPARISON: None. FINDINGS: Right middle lobe airspace opacity. No effusions. No pneumothorax. Probable pectus excavatum deformity. Normal size heart. Normal mediastinum and zach. Normal visualized pulmonary arteries. Normal visualized aortic arch and descending thoracic aorta. Normal visualized thoracic spine. Normal visualized ribs, clavicles, and shoulders. There is no demonstrated abnormality of the visualized soft tissue structures of the upper abdomen. RAD/Chest PA and Lateral IMPRESSION: Findings suggest right middle lobe pneumonia. Recommend continued follow-up. Electronically Signed: Marin Roberson MD at 6:15 EDT , Service support ,
[2020-02-25 05:56] LABS: D-Dimer Quantitative (DVT/PE) 2.79 FEU/ug/m (0.27-0.49)
[2020-02-25 06:00] LABS: ALB/GLOB Ratio 0.8 RATIO (0.9-2.4); AST(SGOT) 35 U/L (15-37); Alanine Aminotransfer ALT/SGPT 46 U/L (13-56); Albumin, Serum 2.7 g/dL (3.2-5.0); Alkaline Phosphatase 97 U/L (45-117); Anion Gap 6 (5-15); BNP,B-Type NATRIURETIC PEPTIDE 225.8 pg/mL (0-100); BUN 10 mg/dL (7-18); BUN/Creat Ratio 19.9 RATIO (10-20); Calcium,Total 8.3 mg/dL (8.5-10.1); Chloride 110 mmol/L (98-107); EST Glomerular Filtration Rate 154 mL/min (>60); Est Glom Filt Rate - Afr Amer 186 mL/min (>60); Estimated Creatinine Clearance 167.47 ml/min; Globulin 3.4 g/dL (2.2-4.2); Glucose 85 mg/dL (74-106); Potassium 3.8 mmol/L (3.5-5.1); Protein, Total 6.1 g/dL (6.4-8.2); Sodium Level 142 mmol/L (136-145); Uric Acid 5.2 mg/dL (2.6-6.0)
[2020-02-25 06:03] VITALS: BP 143/80; PULSE 68; RESP 16; O2SAT 98
--- NOTE | 2020-02-25 06:06 | CT_ITS ---
STUDY: CTA CHEST REASON FOR EXAM: Female, 29 years old. Shortness of breath, elevated d-dimer, increased lower extremity swelling day 6 . RADIATION DOSAGE (If Supplied By Facility): CTDIvol = ( 12.09 ) mGy, DLP = ( 450.43 ) mGycm TECHNIQUE: The examination was performed with the intravenous administration of IV 100mL Isovue-370. Post-processing of the angiographic images was performed, with multiplanar reformation and 3D reconstruction. Individualized dose optimization techniques were used for this CT. COMPARISON: Chest x-ray February 25, 2020. FINDINGS: Normal enhancement of the main pulmonary artery and right and left pulmonary arteries. Normal enhancement of the bilateral peripheral pulmonary arteries. There is no demonstrated pulmonary embolism. Normal thoracic aorta and visualized great vessels. There is no demonstrated aortic dissection. Normal heart and pericardium. Normal mediastinum. Normal hilar regions. Normal visualized trachea and bronchi. The lungs are well expanded. Normal pulmonary parenchyma. Normal pleura. Pectus excavatum deformity. Normal osseous structures. Normal visualized upper abdomen. CT/CTA Chest W/WO Contrast IMPRESSION: Normal CTA chest examination, without a demonstrated pulmonary embolism or arterial dissection. Pectus excavatum deformity. Lungs are clear. The density medial aspect of the right hemithorax on the recent chest x-ray is related to superimposition of chest wall soft tissue secondary to the pectus excavatum deformity. No infiltrate. Electronically Signed: Marin Roberson MD at 6:45 EDT , Service support ,
[2020-02-25 06:11] LABS: Bacteria 0 SEEN /hpf (None Seen); Mucous, Urine 0 SEEN /hpf (<or=2+)
[2020-02-25 06:12] LABS: Color, Urine Yellow (Yellow); Glucose, Dipstick Normal (Normal); Ketone-Dipstick Negative (Negative); Leukocyte Esterase-Dipstick 100 /ul (Negative); Nitrite-Dipstick Negative (Negative); Occult Blood-Urine 250 /ul (Negative); Protein-Dipstick Negative (Negative); Specific Gravity, Urine 1.005 (1.002-1.030); Urine Bilirubin Dipstick Negative (Negative); Urine Clarity Clear (Clear); Urine Urobilinogen Normal (Normal); Urine pH 6.5 (5.0 - 8.0)
[2020-02-25 06:19] LABS: Red Blood Cells-Urine 10-25 SEEN /hpf (0-5); Squamous Epithelial Cells - UA 0-5 SEEN /hpf (5-10); White Blood Cells 10-25 SEEN /hpf (0-5)
[2020-02-25 07:56] VITALS: BP 142/63; PULSE 75; RESP 16; O2SAT 97
== END 2020-02-25 07:57 | disposition home or self-care (01) ==
PROVIDERS: Emergency Provider Emergency Medicine; PCP Family Medicine
DX: D62 Acute posthemorrhagic anemia (principal); R03.0 Elevated blood-pressure reading, without diagnosis of hypertension
CPT/HCPCS: 71046; 71275; 80053; 81001; 83880; 84484; 84550; 85025; 85379; 93005; 99285; Q9967; A4216

== ENCOUNTER → 2020-03-03 10:49 | Outpatient (CLI) | payer BC, SELFPAY ==
[2020-03-03 10:17] VITALS: BMI 33.1
[2020-03-03 11:13] LABS: Absolute Lymphocyte Count 0.88 X10^3/uL (0.83-4.51); Absolute Neutrophil Count 4.4 X10^3/uL (2.0-7.7); Basophil# 0.04 X10^3/uL; Basophil% 0.7 % (0-1); Eosinophil# 0.08 X10^3/uL; Eosinophils% 1.4 % (0-5); Hematocrit 33.6 % (37-47); Hemoglobin 10.3 g/dL (12.0-15.0); Lymphocyte # 0.88 X10^3/ul (4.0); Lymphocyte % 15.6 % (19-41); Mean Corp Hgb Conc 30.7 g/dL (32-36); Mean Corpuscular Hgb 27.5 pg (27.0-32.0); Mean Corpuscular Volume 89.8 fL (81-99); Monocyte# 0.26 X10^3/uL; Monocyte% 4.6 % (0-10); NRBC Flagged by Analyzer 0 % (0-5); Neutrophil # 4.36 X10^3/uL (2.7-7.7); Neutrophil % 77.3 % (47-70); Platelet Count 270 K/mm3 (150-450); RBC Distribution Width CV 14.1 % (11.6-14.6); RBC Distribution Width SD 45.3 fl (35.1-43.9); Red Blood Count 3.74 M/mm3 (4.2-5.4); White Blood Count 5.6 K/mm3 (4.4-11.0)
[2020-03-03 12:03] LABS: ALB/GLOB Ratio 0.9 RATIO (0.9-2.4); AST(SGOT) 28 U/L (15-37); Alanine Aminotransfer ALT/SGPT 29 U/L (13-56); Albumin, Serum 3.5 g/dL (3.2-5.0); Alkaline Phosphatase 99 U/L (45-117); Anion Gap 8 (5-15); BUN 11 mg/dL (7-18); BUN/Creat Ratio 14.6 RATIO (10-20); Calcium,Total 9.1 mg/dL (8.5-10.1); Chloride 109 mmol/L (98-107); Creatinine, Serum 0.75 mg/dL (0.55-1.02); EST Glomerular Filtration Rate 97 mL/min (>60); Est Glom Filt Rate - Afr Amer 117 mL/min (>60); Globulin 3.7 g/dL (2.2-4.2); Glucose 70 mg/dL (74-106); Potassium 4.1 mmol/L (3.5-5.1); Protein, Total 7.2 g/dL (6.4-8.2); Sodium Level 142 mmol/L (136-145)
== END ==
PROVIDERS: PCP Family Medicine; Referring Provider Obstetrics & Gynecology; Visit Provider Obstetrics & Gynecology
DX: O16.5 Unspecified maternal hypertension, complicating the puerperium (principal)
CPT/HCPCS: 36415; 80053; 85025

== ENCOUNTER → 2020-04-07 07:26 | Outpatient (CLI) | payer BC, SELFPAY ==
--- NOTE | 2020-04-07 | VUL_PTH ---
PATIENT: LISANDRA WALLACE LOC: [facility] U#:[id number] AGE/SX: 34/F ROOM: RE04/07/[address]: Dr. Ally Tony MD : 1990 BED: DIS: SPEC #: [id number] RECD: 04/07/20 17:39 STATUS: CRISTINA JIMENEZ #: [id number] SHIRLENE: 04/07/20 00:[address]: Ally Tony DEPT: SURGICAL PATHOLOGY RECD BY: José Bolivar ENTERED: 04/08/20 08:46 SP TYPE: VULVA BX OTHR DR: Dr. Lila Santos MD Tissues: Vulva, NOS Procedures: Surgery Specimen Level IV HEADER OPERATION: Excision of skin PRE-OP DIAGNOSIS: Vulvar polyp TISSUE SUBMITTED: Vulvar polyp MICROSCOPIC DIAGNOSIS Vulvar polyp, excision: Pyogenic granuloma with ulceration and associated acute and chronic inflammation. Hyperkeratosis. AM:kate 12/2/20 MICROSCOPIC DESCRIPTION Slides are reviewed. GROSS DESCRIPTION Received is one container labeled with the patient's name and not further designated. The specimen consists of two polypoid pieces of coleman-brown skin measuring 1.5 x 0.7 x 0.7 cm and 0.4 x 0.4 x 0.1 cm. Both pieces are inked black. The larger piece is bisected. The entire specimen is submitted in one cassette. / TANNER:kate 04/08/20 TC:1 CPT: 69229
[2020-04-07 08:04] VITALS: BMI 30.7
== END ==
PROVIDERS: PCP Family Medicine; Referring Provider Obstetrics & Gynecology; Visit Provider Obstetrics & Gynecology
DX: N84.3 Polyp of vulva (principal)
CPT/HCPCS: 88305

== ENCOUNTER → 2020-04-18 17:52 | Outpatient (CLI) | payer BC, SELFPAY ==
[2020-04-18 13:31] VITALS: BMI 30.1
== END ==
PROVIDERS: PCP Family Medicine; Visit Provider Obstetrics & Gynecology
DX: N89.8 Other specified noninflammatory disorders of vagina (principal)
CPT/HCPCS: 87070; 87077; 87086; 87088; 87186; 87205

== ENCOUNTER → 2020-05-22 12:37 | Outpatient (CLI) | payer BC, SELFPAY ==
[2020-05-22 09:56] VITALS: BMI 29.5
== END ==
PROVIDERS: PCP Family Medicine; Visit Provider Nurse Practitioner Women's Health
DX: N76.0 Acute vaginitis (principal); R35.0 Frequency of micturition; R30.9 Painful micturition, unspecified
CPT/HCPCS: 87070; 87077; 87086; 87088; 87186; 87205

== ENCOUNTER → 2020-08-12 16:30 | Outpatient (CLI) | payer BC, SELFPAY ==
[2020-08-12 08:09] VITALS: BMI 30.3
== END ==
PROVIDERS: PCP Family Medicine; Referring Provider Nurse Practitioner Women's Health; Visit Provider Nurse Practitioner Women's Health
DX: N94.9 Unspecified condition associated with female genital organs and menstrual cycle (principal); N89.8 Other specified noninflammatory disorders of vagina
CPT/HCPCS: 87070; 87086; 87088; 87205

== ENCOUNTER 2021-10-14 22:48 | Emergency (ER) | payer OTHER, SELFPAY ==
[2021-10-14 22:49] VITALS: BP 166/94; PULSE 104; RESP 18; TEMP 36.7; O2SAT 100; BMI 30.4
--- NOTE | 2021-10-14 23:10 | EX.ED.DYSGE1 ---
HPI History of Present Illness Chief Complaint: Wound Check Narrative Narrative: Patient presents with pain and swelling of her chin since yesterday. She noticed a small pustule and admittedly squeezed it. She states a large amount of pus had come out and was expressed. She denies any fevers or chills. No nausea or vomiting. She tried to go to sleep tonight but her chin was throbbing. She denies any significant past medical history except for depression, no diabetes. She presents for wound check of her abscess on her chin. [facility] Medical History ADHD Home Medications citalopram 20 mg tablet 20 mg PO DAILY #90 tab 04/08/21 [Rx Last Taken Unknown] ferrous sulfate 325 mg (65 mg iron) tablet 325 mg PO Q OTHER DAY tab 04/08/21 [History Last Taken Unknown] levonorgestrel 0.15 mg-ethinyl estradiol 0.03 mg tablet 1 tab PO DAILY #84 tab 04/28/21 [Rx Last Taken Unknown] sulfamethoxazole-trimethoprim [Bactrim DS] 1 tab PO BID #20 tab 10/14/21 [Rx Last Taken Unknown] Allergy/AdvReac Type Severity Reaction Status Date / Time amoxicillin Allergy Intermediate Rash Verified 10/14/21 22:50 Family History Father Hypertension CVA (cerebral vascular accident) Uncle Cancer Leukemia Surgical History No significant past surgical history S/P Social History adopted: No household members: spouse housing: apartment current occupational status: employed current occupation: PT current occupational exposures/hazards: No pets and animals: Yes history of recent travel: No sexually active: Yes Smoking Status: Never smoker second hand exposure: No alcohol intake: current alcohol intake frequency: holidays/special occasions only details: Not while pregancy substance use type: does not use seatbelt use: always do you feel safe at home: Yes additional social history: Isra- FA ROS ROS ED ROS Narrative Constitutional: No fever, no chills. HEENT: No sore throat. No neck pain. No loss of vision. No rhinorrhea. Pain and swelling of chin. Throbbing pain. Cardiovascular: No chest pain. No palpitations. No pedal edema. Respiratory: No cough, no shortness of breath. Abdominal: No abdominal pain. No nausea. No vomiting. Genitourinary: No dysuria. No hematuria. Musculoskeletal: No myalgias. No arthralgias. Neurologic: No headaches. No dizziness. No lightheadedness. Skin: No rash. No change in color. Psychiatric: No depression. No anxiety. EXAM Physical Exam Narrative Exam Narrative: Afebrile. Vital signs noted. HEENT: Normocephalic. Atraumatic. PERRL, EOMI. Neck soft and supple. No point tenderness or step off. Small area of eschar/evidence of ruptured pustule. No noted fluctuance or erythema. Positive induration. Airway patent. No drooling or trismus. Cardiovascular: Regular rate and rhythm. No murmurs, rubs, or gallops appreciated. Respiratory: No tachypnea. Lungs clear to auscultation bilaterally. Gastrointestinal: Abdomen soft, nontender, with normoactive bowel sounds. No rebound or guarding. Neurological: Awake. Alert. Nonfocal, nonlateralizing. Skin: No rash. Normal color. No pallor. Musculoskeletal: No pedal edema. Full range of motion extremities. Const Vital Signs: 10/14/21 22:49 Temperature 98.1 F Temperature Source Temporal Pulse Rate 104 H Respiratory Rate 18 Blood Pressure 166/94 H Blood Pressure Mean 118 Pulse Ox 100 Oxygen Delivery Method Room Air MDM [facility] Narrative Medical decision making narrative: I did offer to ultrasound the area to see if there was pus that needed to be drained but the patient declined. I did offer incision and drainage as she was told of the risk of scarring, but she also declined. She prefers to try outpatient antibiotic treatment first. She was given her first dose of Bactrim DS here in the emergency department and a prescription written to take twice daily for the next 10 days. She will apply warm compresses and take anti-inflammatories [id number]. I urged her to follow-up with her primary care physician in the next 1 to 2 days for a wound check. She was told of the probability that this condition may worsen and require incision and drainage in the future. She acknowledges an understanding. I feel she be discharged safely home with follow-up. Return instructions were reviewed. Disposition is discharged home in stable condition. Discharge Plan Triage Chief Complaint: Wound Check ED Provider: Brad Collier Dx/Rx/DC Orders Clinical Impression: Abscess of chin Instructions: ED Abscess Antibiotic Treatment Only Prescriptions: New sulfamethoxazole-trimethoprim [Bactrim DS] 800-160 mg tablet 1 tab PO BID Qty: 20 RF: 0 No Action citalopram 20 mg tablet 20 mg PO DAILY Qty: 90 RF: 3 ferrous sulfate 325 mg (65 mg iron) tablet 325 mg PO Q OTHER DAY RF: 0 levonorgestrel-ethinyl estrad 0.15-0.03 mg tablet 1 tab PO DAILY Qty: 84 RF: 4 Primary Care Provider: Lila Santos Referrals: Lila Santos MD [Primary Care Provider] - 2 Days for wound check Disposition Disposition: Home, Self Care Discharge Date/Time: 10/14/21 23:15
[2021-10-14] MEDS: Smz/Tmp Ds Tablet 1 TABLET PO (23:12)
== END 2021-10-14 23:15 | disposition home or self-care (01) ==
LOC: ED 23:14
PROVIDERS: Emergency Provider Emergency Medicine; PCP Family Medicine; Visit Provider Emergency Medicine
DX: L02.01 Cutaneous abscess of face (principal); F90.9 Attention-deficit hyperactivity disorder, unspecified type
CPT/HCPCS: 99283

== ENCOUNTER → 2022-06-17 | Outpatient (CLI) | payer OTHER, SELFPAY ==
[2022-06-17 10:08] LABS: Absolute Lymphocyte Count 1.17 X10^3/uL (0.83-4.51); Absolute Neutrophil Count 4.9 X10^3/uL (2.0-7.7); Basophil# 0.04 X10^3/uL; Basophil% 0.6 % (0-1); Eosinophil# 0.05 X10^3/uL; Eosinophils% 0.8 % (0-5); Hematocrit 36.7 % (37-47); Hemoglobin 12.3 g/dL (12.0-15.0); Lymphocyte # 1.17 X10^3/ul (0.83-4.51); Lymphocyte % 18.2 % (19-41); Mean Corp Hgb Conc 33.5 g/dL (32-36); Mean Corpuscular Hgb 28.3 pg (27.0-32.0); Mean Corpuscular Volume 84.6 fL (81-99); Mean Platelet Vol. 8.6 fl (6.2-12.0); Monocyte# 0.28 X10^3/uL; Monocyte% 4.4 % (0-10); NRBC Flagged by Analyzer 0 % (0-5); Neutrophil # 4.87 X10^3/uL (2.7-7.7); Neutrophil % 75.8 % (47-70); Platelet Count 241 K/mm3 (150-450); RBC Distribution Width CV 12.4 % (11.6-14.6); RBC Distribution Width SD 38.5 fl (35.1-43.9); Red Blood Count 4.34 M/mm3 (4.2-5.4); White Blood Count 6.4 K/mm3 (4.4-11.0)
[2022-06-17 10:49] LABS: AST(SGOT) 9 U/L (15-37); Alanine Aminotransfer ALT/SGPT 17 U/L (13-56); Albumin, Serum 3.7 g/dL (3.2-5.0); Alkaline Phosphatase 50 U/L (45-117); Anion Gap 7 (5-15); BUN 8 mg/dL (7-18); BUN/Creat Ratio 14.2 RATIO (10-20); Calcium,Total 9.1 mg/dL (8.5-10.1); Chloride 102 mmol/L (98-107); Creatinine, Serum 0.56 mg/dL (0.55-1.02); EST Glomerular Filtration Rate 133 mL/min (>60); Est Glom Filt Rate - Afr Amer 160 mL/min (>60); Globulin 3.6 g/dL (2.2-4.2); Glucose 120 mg/dL (74-106); Glucose Challenge Gest 1H 50g 120 mg/dL (70-140); Potassium 3.7 mmol/L (3.5-5.1); Protein, Total 7.3 g/dL (6.4-8.2); Sodium Level 137 mmol/L (136-145)
[2022-06-17 11:20] LABS: HIV - WCH Non-Reactive (Nonreactive); Hepatitis B Surface Antigen Non-Reactive (Nonreactive); Hepatitis C Antibody Non-Reactive (Nonreactive); Rubella IgG Reactive (Nonreactive); Syphilis Antibodies Non-reactive
[2022-06-17 13:44] LABS: Protein, Urine (Random) < 6.0 mg/dL (<11.9)
[2022-06-21 07:07] LABS: Chlamydia By Nucleic Acid AMP Negative (Negative)
[2022-06-21 20:17] LABS: Gonococcus By Nucleic Acid AMP Negative (Negative)
[2022-06-25 17:14] LABS: HPV APTIMA, High Risk Negative (Negative)
== END | disposition home or self-care (01) ==
PROVIDERS: Obstetrics & Gynecology; PCP Family Medicine; Referring Provider Obstetrics & Gynecology; Visit Provider Obstetrics & Gynecology
DX: Z34.90 Encounter for supervision of normal pregnancy, unspecified, unspecified trimester (principal); Z3A.00 Weeks of gestation of pregnancy not specified; O16.5 Unspecified maternal hypertension, complicating the puerperium; O99.210 Obesity complicating pregnancy, unspecified trimester; Z12.4 Encounter for screening for malignant neoplasm of cervix
CPT/HCPCS: 36415; 80053; 82570; 82950; 84156; 85025; 86703; 86762; 86780; 86803; 86850; 86900; 86901; 87086; 87340; 87491; 87591; 87624; 88175; G0145

== ENCOUNTER → 2022-07-15 | Outpatient (CLI) | payer OTHER, SELFPAY ==
[2022-07-15 12:36] LABS: NATERA MAILED SPECIMEN
== END | disposition home or self-care (01) ==
LOC: PAVLAB 11:12
PROVIDERS: PCP Family Medicine; Referring Provider Obstetrics & Gynecology; Visit Provider Obstetrics & Gynecology
DX: Z34.81 Encounter for supervision of other normal pregnancy, first trimester (principal)

== ENCOUNTER → 2022-09-13 | Outpatient (CLI) | payer OTHER, SELFPAY ==
--- NOTE | 2022-09-13 14:13 | US_ITS ---
EXAM: US SECOND OR THIRD TRIMESTER , TRANSABDOMINAL CLINICAL INDICATION: None provided. anatomy TECHNIQUE: Transabdominal obstetrical ultrasound of the maternal pelvis and a second or third trimester with image documentation. COMPARISON: No relevant prior studies available. FINDINGS: FETUS: Single. HEART RATE: 145 bpm. PRESENTATION: Transverse, head to maternal left. PLACENTA: Unremarkable. Grade 0. Anterior. No placenta previa. No abruption. The inferior margin of the placenta is roughly 2.9 cm superior to the internal os. AMNIOTIC FLUID: Unremarkable. The largest pocket 8.1 cm. ANATOMY: Four-chamber heart, 6 mm lateral ventricles, cerebellum, 5 mm cisterna magna, nose-lips, stomach, cord insertion, renal fossa, placental cord insertion, bladder, visualized extremities, diaphragm, spine, three-vessel cord appear unremarkable. Male genitalia. BIOMETRICS GESTATIONAL AGE: 19 weeks 5 days. KEMAR:February 02, 2023. EFW: 312 g +/- 47 g. BPD: 4.5 cm, 19 weeks 5 days. HC: 17.1 cm, 19 weeks 5 days. AC: 14.5 cm, 19 weeks 6 days. FL: 3.1 cm, 19 weeks 5 days. MATERNAL: UTERUS: Unremarkable. No myometrial mass. CERVIX: Unremarkable as visualized. The cervix is closed. 4.9 cm in length on transabdominal exam, 4 cm in length on transvaginal exam.. ADNEXA: Nonvisualized maternal ovaries. FREE FLUID: None.
== END | disposition home or self-care (01) ==
LOC: US 14:12
PROVIDERS: PCP Family Medicine; Referring Provider Obstetrics & Gynecology; Visit Provider Obstetrics & Gynecology
DX: O09.90 Supervision of high risk pregnancy, unspecified, unspecified trimester (principal); Z3A.00 Weeks of gestation of pregnancy not specified
CPT/HCPCS: 76805; 76817

== ENCOUNTER 2022-10-29 17:50 | Outpatient (CLI) | payer OTHER, SELFPAY ==
[2022-10-29] VITALS (8 sets, daily range): BP systolic 114–123; BP diastolic 52–67; PULSE 98–112; TEMP 37.1–37.8; O2SAT 96–100; BMI 35.2
--- NOTE | 2022-10-29 18:45 | OB.TRI.HP_ITS ---
HPI - General General Date of Admission: 10/29/22 Date of Service: 10/29/22 HPI Narrative LISANDRA WALLACE, is a 31 F who presents at 26.1 weeks with concern of fever. Her son has recently been ill with a virus that also caused a high fever. Her symptoms started earlier today and her highest temp was over 101. Maternal Data Information KEMAR Calculator Estimated Delivery Date Method Current WG Current Estimate 02/03/23 LMP (Certain) 26w 1d Other Estimates 01/29/23 Ultrasound #1 26w 6d 02/01/23 Ultrasound #2 26w 3d Final KEMAR: 02/03/23 Final KEMAR Source: US >20 weeks Gestational age: 26.1 weeks PFSH PFS Medical History ADHD Hypertension, condition or complication depression Home Medications multivit-min no.71-iron fum 28 mg-folate no.1 1 mg-dha 300 mg capsule (PNV- [place]) 1 cap PO DAILY 06/08/22 [History Last Taken 10/28/22 21:30] citalopram 20 mg tablet 20 mg PO DAILY PPD 10/29/22 [History Last Taken 10/28/22 21:30] loratadine 10 mg tablet (Claritin) 10 mg PO DAILY 10/29/22 [History Last Taken 10/29/22 11:00] Allergy/AdvReac Type Severity Reaction Status Date / Time amoxicillin Allergy Intermediate Rash Verified 10/29/22 18:09 Family History Father Hypertension CVA (cerebral vascular accident) Uncle Cancer Leukemia Surgical History Hx of wisdom tooth extraction No significant past surgical history S/P Social History adopted: No household members: spouse and children housing: apartment number of children: 1 current occupational status: employed current occupation: PT current occupational exposures/hazards: No pets and animals: Yes (Not managing litterbox) pets and animals: cat(s) history of recent travel: No sexually active: Yes Smoking Status: Never smoker second hand exposure: No alcohol intake: current alcohol intake frequency: holidays/special occasions only details: Not while pregancy substance use type: does not use well-balanced diet: daily or most days caffeine: Yes Type: coffee Number of servings: 1 eating out: 1-3 times/week during the past year weight has: remained stable what type of physical activity do you participate in: walking frequency: 1-2 times per week duration: 15-30 minutes/day coy/christianity: None seatbelt use: always do you feel safe at home: Yes additional social history: Isra- FA History 2 Elective abortions Hx Para 1 Spontaneous abortions Hx # Term Pregnancies Ectopic pregnancies Hx # Pregnancies Multiple births # of living children 1 Past Pregnancies Del. Date Name GA/Weeks Outcome Route Bth Weight Gen Labor [facility] Provider FOB 02/19/20 [place] 40 live - full term 10lb 2oz Male epidural [facility] Delivery Date: 02/19/20 Last Updated by: Meliza Roberts AoD 10cm. pushed for 4 hours Visit Details Expected Delivery Route/Plan for repeat Plans Covid status: [] Flu vaccine: [] Tdap vaccine: [] Rhogam: [] LARC form signed: [] Problem list reviewed and updated with the most current plan of care details and appropriate orders placed. Relevant counseling for the gestational age provided. Continue routine care and follow up unless otherwise noted in visit notes/problem list details OB Flowsheet Initial Weight: Not Recorded Date -?-?-?-?-?-?-?-?-?-?-?-?- EGA Weight BP Urine Prot -?-?-?-?-?-?-?-?-?-?-?-?- Glucose FHR FuHt Pres Dilation -?-?-?-?-?-?-?-?-?-?-?-?- Effaced St Visit Note 06/17/22 -?-?-?-?-?--?-?-?-?-?-?-?- 7w 0d 210 lb 8 oz 102/70 -?-?-?-?-?-?-?-?-?-?-?-?- 136 -?-?-?-?-?-?-?-?-?-?-?-?- JV- single live IUP measuring 7 weeks 2 days and consistent with LMP. desires NIPT (to be ordered next visit) 07/15/22 -?-?-?-?-?-?-?-?-?-?-?-?- 11w 0d 212 lb 2 oz 122/77 Nega tive -?-?-?-?-?-?-?-?-?-?-?-?- Negative 145 -?-?-?-?-?-?-?-?-?-?-?-?- JV- normal scan today with consistent growth. pt definitely wants a repeat section. nipt ordered. 08/09/22 -?-?-?-?-?-?-?-?-?-?-?-?- 14w 4d 214 lb 8 oz 125/77 Nega tive -?-?-?-?-?-?-?-?-?-?-?-?- Negative 140 -?-?-?-?-?-?-?-?-?-?-?-?- SM- no vb crampi ng 09/06/22 -?-?-?-?-?-?-?-?-?-?-?-?- 18w 4d 218 lb 4 oz 104/68 Nega tive -?-?-?-?-?-?-?-?-?-?-?-?- Negative 161 -?-?-?-?-?-?-?-?-?-?-?-?- MH-No Vb, crampi ng. Nausea resolved. anatomy US next week 10/07/22 -?-?-?-?-?-?-?-?-?-?-?-?- 23w 0d 224 lb 6 oz 110/68 Nega tive -?-?-?-?-?-?-?-?-?-?-?-?- Negative 155 -?-?-?-?-?-?-?-?-?-?-?-?- JV- no lof, vagi nal bleeding, or dec fm. normal anatomy scan. having a lot of pelvic/ hip pain. she is a physical therapist and doing some exercises. 10/29/22 -?-?-?-?-?-?-?-?-?-?-?-?- 26w 1d 231 lb 7.766 oz 123/67 -?-?-?-?-?-?-?-?-?-?-?-?- -?-?-?-?-?--?-?-?-?-?-?-?- ROS Constitutional Constitutional: Reports systems reviewed and no addt'l complaints, except as documented Cardiovascular Cardiovascular: Reports systems reviewed and no addt'l complaints, except as documented Respiratory/Chest Respiratory/Chest: Reports change in phlegm color and chest congestion Gastrointestinal Gastrointestinal: Reports systems reviewed and no addt'l complaints, except as documented, nausea and vomiting Genitourinary Genitourinary: Reports systems reviewed and no addt'l complaints, except as documented and movement Details: decreased; Denies burning urination, contractions, difficulty urinating, flank pain, urinary hesitancy, urinary incontinence or urinary urgency Musculoskeletal Musculoskeletal: Reports systems reviewed and no addt'l complaints, except as documented Integumentary Integumentary: Reports systems reviewed and no addt'l complaints, except as documented Neurologic Neurologic: Reports systems reviewed and no addt'l complaints, except as documented Psychiatric Psychiatric: Reports systems reviewed and no addt'l complaints, except as documented Endocrine Endocrinology: Reports systems reviewed and no addt'l complaints, except as documented Hematologic/Lymphatic Hematologic/Lymphatic: Reports systems reviewed and no addt'l complaints, except as documented Allergic/Immunologic Allergic/Immunologic: Reports systems reviewed and no addt'l complaints, except as documented Physical Exam Const alert and oriented x3 General Appearance: cooperative and comfortable Resp normal respiratory effort, no retractions and no use of accessory muscles GI Inspection: gravid Extremity normal to inspection and full ROM Neuro moves all extremities Psych mental status grossly normal NST FHR Rate Baby A Baseline: 145 Variability:: Minimal and Moderate Accelerations:: 10 x 10 Decelerations:: None NST Reactive:: Appropriate for gestational age FHR Category:: Category I Uterine Activity:: none Assessment & Plan (1) Fever and chills: PLAN: CBC Tylenol IV bolus (2) Nausea and vomiting: PLAN: zofran (3) Acute sore throat: PLAN: resp panel tylenol Charges/Coding Multi Select Codes Visit Charges Office Visit/Consults: 07580 OV L3 Est Urinary/Genital Urinary/Genital CPT Codes: 96682-52 non-stress test Interp
[2022-10-29] MEDS: Acetaminophen 500 MG Tablet 1000 MG PO (18:46)
[2022-10-29] MEDS: Ondansetron 4 MG/2 ML Vial IV (18:47)
[2022-10-29] MEDS: Lactated Ringers 1,000 ML 999 ML IV (18:47)
[2022-10-29 18:59] LABS: Absolute Lymphocyte Count 0.71 X10^3/uL (0.83-4.51); Absolute Neutrophil Count 6.9 X10^3/uL (2.0-7.7); Basophil# 0.03 X10^3/uL; Basophil% 0.4 % (0-1); Eosinophil# 0.01 X10^3/uL; Eosinophils% 0.1 % (0-5); Hematocrit 30.9 % (37-47); Hemoglobin 9.9 g/dL (12.0-15.0); Lymphocyte # 0.71 X10^3/ul (0.83-4.51); Lymphocyte % 8.7 % (19-41); Mean Corpuscular Volume 87.3 fL (81-99); Monocyte# 0.46 X10^3/uL; Monocyte% 5.7 % (0-10); NRBC Flagged by Analyzer 0 % (0-5); Neutrophil # 6.88 X10^3/uL (2.7-7.7); Neutrophil % 84.7 % (47-70); Platelet Count 171 K/mm3 (150-450); RBC Distribution Width CV 13.1 % (11.6-14.6); RBC Distribution Width SD 41.3 fl (35.1-43.9); Red Blood Count 3.54 M/mm3 (4.2-5.4); White Blood Count 8.1 K/mm3 (4.4-11.0)
[2022-10-29 20:48] LABS: Bacteria 0 SEEN /hpf (None Seen); Mucous, Urine 0 SEEN /hpf (<or=2+); Red Blood Cells-Urine 0 SEEN /hpf (0-5); White Blood Cells 0 SEEN /hpf (0-5)
[2022-10-29 20:51] LABS: Color, Urine Yellow (Yellow); Glucose, Dipstick Normal (Normal); Ketone-Dipstick 50 mg/dl (Negative); Leukocyte Esterase-Dipstick 25 /ul (Negative); Nitrite-Dipstick Negative (Negative); Occult Blood-Urine Negative /ul (Negative); Protein-Dipstick Negative (Negative); Urine Bilirubin Dipstick Negative (Negative); Urine Clarity Clear (Clear); Urine Urobilinogen Normal (Normal)
[2022-10-29 21:00] LABS: Squamous Epithelial Cells - UA 0-5 SEEN /hpf (5-10)
== END 2022-10-29 23:18 | disposition home or self-care (01) ==
LOC: WPOUT 18:02 → WP 18:03
PROVIDERS: Obstetrics & Gynecology; PCP Family Medicine; Visit Provider Advanced Practice Midwife
DX: O26.892 Other specified pregnancy related conditions, second trimester (principal); R50.9 Fever, unspecified; J02.9 Acute pharyngitis, unspecified; Z3A.26 26 weeks gestation of pregnancy; O21.9 Vomiting of pregnancy, unspecified; O99.512 Diseases of the respiratory system complicating pregnancy, second trimester; O99.342 Other mental disorders complicating pregnancy, second trimester; F32.A Depression, unspecified
CPT/HCPCS: 96374; 96361; 36415; 59025; 59050; 81001; 85025; 87086; 87088; 87633; 87811; 99221; J7120; G0378; J2405

== ENCOUNTER → 2022-11-04 | Outpatient (CLI) | payer OTHER, SELFPAY ==
[2022-11-04 08:40] LABS: Absolute Lymphocyte Count 1.05 X10^3/uL (0.83-4.51); Absolute Neutrophil Count 4.6 X10^3/uL (2.0-7.7); Basophil# 0.01 X10^3/uL; Basophil% 0.2 % (0-1); Eosinophil# 0.06 X10^3/uL; Hematocrit 31.8 % (37-47); Hemoglobin 10.2 g/dL (12.0-15.0); Lymphocyte # 1.05 X10^3/ul (0.83-4.51); Lymphocyte % 17.8 % (19-41); Mean Corp Hgb Conc 32.1 g/dL (32-36); Mean Corpuscular Hgb 27.9 pg (27.0-32.0); Mean Corpuscular Volume 86.9 fL (81-99); Mean Platelet Vol. 8.5 fl (6.2-12.0); Monocyte# 0.16 X10^3/uL; Monocyte% 2.7 % (0-10); NRBC Flagged by Analyzer 0 % (0-5); Neutrophil # 4.58 X10^3/uL (2.7-7.7); Neutrophil % 77.8 % (47-70); Platelet Count 185 K/mm3 (150-450); RBC Distribution Width CV 12.7 % (11.6-14.6); RBC Distribution Width SD 40.3 fl (35.1-43.9); Red Blood Count 3.66 M/mm3 (4.2-5.4); White Blood Count 5.9 K/mm3 (4.4-11.0)
[2022-11-04 09:00] LABS: Glucose Challenge Gest 1H 50g 159 mg/dL (70-140)
[2022-11-04 09:34] LABS: HIV - WCH Non-Reactive (Nonreactive); Syphilis Antibodies Non-reactive
== END | disposition home or self-care (01) ==
LOC: LAB 07:55
PROVIDERS: PCP Family Medicine; Referring Provider Obstetrics & Gynecology; Visit Provider Obstetrics & Gynecology
DX: O09.90 Supervision of high risk pregnancy, unspecified, unspecified trimester (principal); Z13.1 Encounter for screening for diabetes mellitus; Z3A.00 Weeks of gestation of pregnancy not specified
CPT/HCPCS: 36415; 82950; 85025; 86703; 86780

== ENCOUNTER → 2022-11-22 | Outpatient (CLI) | payer OTHER, SELFPAY ==
[2022-11-22 07:59] LABS: Glucose GTT-Gestation. Fasting 86 mg/dL (<105)
[2022-11-22 09:06] LABS: Glucose GTT-Gestational 1 Hr 174 mg/dL (<190)
[2022-11-22 09:47] LABS: Glucose GTT-Gestational 2 Hr 138 mg/dL (<165)
[2022-11-22 11:03] LABS: Glucose GTT-Gestational 3 Hr 67 L (<145)
== END | disposition home or self-care (01) ==
LOC: LAB 06:42
PROVIDERS: PCP Family Medicine; Referring Provider Obstetrics & Gynecology; Visit Provider Obstetrics & Gynecology
DX: O99.810 Abnormal glucose complicating pregnancy (principal); Z3A.00 Weeks of gestation of pregnancy not specified
CPT/HCPCS: 36415; 82951; 82952

== ENCOUNTER → 2022-12-16 | Outpatient (CLI) | payer OTHER, SELFPAY ==
[2022-12-16 08:28] LABS: Absolute Neutrophil Count 5.3 X10^3/uL (2.0-7.7); Basophil# 0.02 X10^3/uL; Basophil% 0.3 % (0-1); Eosinophil# 0.07 X10^3/uL; Hematocrit 33.9 % (37-47); Hemoglobin 10.7 g/dL (12.0-15.0); Lymphocyte % 18.2 % (19-41); Mean Corp Hgb Conc 31.6 g/dL (32-36); Mean Corpuscular Hgb 27.9 pg (27.0-32.0); Mean Corpuscular Volume 88.5 fL (81-99); Monocyte% 5.6 % (0-10); NRBC Flagged by Analyzer 0 % (0-5); Neutrophil % 74.2 % (47-70); Platelet Count 150 K/mm3 (150-450); RBC Distribution Width CV 14.3 % (11.6-14.6); RBC Distribution Width SD 45.6 fl (35.1-43.9); Red Blood Count 3.83 M/mm3 (4.2-5.4); White Blood Count 7.1 K/mm3 (4.4-11.0)
== END | disposition home or self-care (01) ==
PROVIDERS: PCP Family Medicine; Referring Provider Registered Nurse; Visit Provider Registered Nurse
DX: O99.019 Anemia complicating pregnancy, unspecified trimester (principal); Z3A.00 Weeks of gestation of pregnancy not specified
CPT/HCPCS: 36415; 85025

== ENCOUNTER → 2023-01-06 | Outpatient (CLI) | payer OTHER, SELFPAY ==
--- NOTE | 2023-01-06 07:50 | US_ITS ---
STUDY: SECOND AND THIRD TRIMESTER OBSTETRICAL ULTRASOUND - LIMITED REASON FOR EXAM: Female, 32 years old growth LMP: Unknown. PRIOR ULTRASOUND: None. TECHNIQUE: Transabdominal TECHNICAL QUALITY: Adequate. FINDINGS: There is a single intrauterine fetus. The fetus is in a cephalic presentation. There is demonstrated cardiac activity with a heart rate of 134 bpm. There is a normal amniotic fluid volume. The largest amniotic fluid pocket measures 5.0 x 4.1 cm. The amniotic fluid index (GRISELDA) is 13.5 cm. The placenta is anterior in location and is not low lying. There are Grade 1 placental changes. The cervix measures 3.6 cm cm in length. The cervix is closed. BIOMETRY: BPD: 8.68 cm: 35 weeks, 0 days HC: 31.15 cm: 34 weeks, 6 days AC: 33.81 cm: 37 weeks, 5 days FL: 7.35 cm: 37 weeks, 4 days Age by LMP: 36 weeks, 0 days. KEMAR by LMP: 02/03/2023. age by prior US: 636 weeks, 1 days. KEMAR by prior US: 02/02/2023. age by current US: 35 weeks, 4 days. KEMAR by current US: 02/06/2023. Estimated weight: 3181 grams, +/- 477 grams, 83.79 percentile. US/OB Limited With Biometrics IMPRESSION: Single intrauterine with ultrasound age of 35 weeks and 4 days and estimated date of delivery of 02/06/2023. Vertex presentation. Anterior placenta with no previa. Normal cardiac activity. Normal amniotic fluid. Electronically Signed: Lolis Stallings MD at 18:49 EDT ,
== END | disposition home or self-care (01) ==
LOC: US 07:50
PROVIDERS: PCP Family Medicine; Referring Provider Nurse Practitioner Women's Health; Visit Provider Nurse Practitioner Women's Health
DX: O09.299 Supervision of pregnancy with other poor reproductive or obstetric history, unspecified trimester (principal); Z3A.00 Weeks of gestation of pregnancy not specified
CPT/HCPCS: 76816

== ENCOUNTER → 2023-01-07 | Outpatient (CLI) | payer OTHER, SELFPAY | END | disposition home or self-care (01) | LOC: LABSPEC 16:48 | PROVIDERS: PCP Family Medicine; Referring Provider Obstetrics & Gynecology; Visit Provider Obstetrics & Gynecology | DX: O09.90 Supervision of high risk pregnancy, unspecified, unspecified trimester (principal); Z3A.00 Weeks of gestation of pregnancy not specified | CPT/HCPCS: 87081 ==

== ENCOUNTER 2023-01-11 04:55 | Inpatient (IN) | payer OTHER, SELFPAY ==
[2023-01-10 21:05] VITALS: BP 124/70; PULSE 78; PULSE 80; TEMP 37.3; O2SAT 99
[2023-01-10 21:11] VITALS: BMI 37.3
[2023-01-10 21:49] VITALS: PULSE 77; O2SAT 100
[2023-01-11] VITALS (19 sets, daily range): BP systolic 95–133; BP diastolic 53–74; PULSE 69–95; RESP 12–21; TEMP 36.4–37.4; O2SAT 94–100
--- NOTE | 2023-01-11 | PLAC_PTH ---
PATIENT: LISANDRA WALLACE LOC: WP U#:[id number] AGE/SX: 32/F ROOM: [facility] RE01/11/[address]: Dr. Ally Tony MD : 1990 BED: 1 DIS: 01/13/2023 SPEC #: [id number] RECD: 01/11/23 11:48 STATUS: CRISTINA JIMENEZ #: [id number] SHIRLENE: 01/11/23 00:[address]: Ally Tony DEPT: SURGICAL PATHOLOGY RECD BY: José Bolivar ENTERED: 01/11/23 11:48 SP TYPE: PLACENTA OTHR DR: Dr. Lila Santos MD Tissues: Placenta, NOS Procedures: Surgery Specimen Level V HEADER OPERATION: Repeat section PRE-OP DIAGNOSIS: labor, rule out abruption TISSUE SUBMITTED: Placenta MICROSCOPIC DIAGNOSIS Placenta: Placental disc - third trimester placenta (728 gm). Membranes - no pathologic diagnosis. Umbilical cord - three blood vessels and no pathologic diagnosis. TANNER:kate 01/13/2023 MICROSCOPIC DESCRIPTION Slides are reviewed. GROSS DESCRIPTION SPECIMEN: PLACENTA / CLINICAL INFORMATION: A. Weight: 3.595 kg B. Gestational Age: 36 weeks C. Sex: Male PLACENTAL WEIGHT (POST FIXATION): 728 gm PLACENTAL DIMENSIONS: 20.0 x 18.0 x 3.5 cm PLACENTAL SHAPE: Usual ovoid PLACENTAL WEIGHT FOR GESTATIONAL AGE: >99th percentile MEMBRANES - Present A. Insertion: Marginal B. Site of rupture from edge: The membranes are fragmented, distance of rupture cannot be assessed. C. Color of membrane: Craft-wilson D. Abnormalities: None UMBILICAL CORD - Present A. Color: Craft-wilson B. Insertion: Paracentral C. Length: 35.0 cm D. Diameter: 1.5 cm E. Number of vessels: Three F. Abnormalities: None PLACENTAL DISC - Present A. Color of surface: Craft-wilson B. surface abnormalities: None C. Maternal cotyledons: Intact with minimal tears D. Attached retro placental clot: No clot E. Cut surface: Dark red and spongy F. Lesions: None G. Separate clot: Absent SECTIONS SUBMITTED: 1. Membrane roll 2. Cord, maternal end 3. Cord, end 4. Placental disc, and maternal surfaces 5. Placental disc, and maternal surfaces 6. Placental disc, and maternal surfaces SJ:kate 01/12/2023 TC:5 CPT: 41256
[2023-01-11] MEDS: Lactated Ringers 1,000 ML 999 ML IV ×4 (00:04→11:15)
[2023-01-11] MEDS: Lactated Ringers 1,000 ML 150 ML IV ×2 (02:40→06:18)
[2023-01-11 03:22] LABS: Fibrinogen 357 mg/dl (203-444)
[2023-01-11] MEDS: Acetaminophen 500 MG Tablet 1000 MG PO ×4 (03:29→22:07)
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
[2023-01-11 04:16] LABS: Absolute Lymphocyte Count 1.35 X10^3/uL (0.83-4.51); Absolute Neutrophil Count 4.7 X10^3/uL (2.0-7.7); Basophil# 0.02 X10^3/uL; Basophil% 0.3 % (0-1); Eosinophil# 0.05 X10^3/uL; Eosinophils% 0.8 % (0-5); Hematocrit 32.3 % (37-47); Hemoglobin 10.5 g/dL (12.0-15.0); Lymphocyte # 1.35 X10^3/ul (0.83-4.51); Lymphocyte % 20.4 % (19-41); Mean Corp Hgb Conc 32.5 g/dL (32-36); Mean Corpuscular Hgb 28.3 pg (27.0-32.0); Mean Corpuscular Volume 87.1 fL (81-99); Mean Platelet Vol. 9.9 fl (6.2-12.0); Monocyte# 0.41 X10^3/uL; Monocyte% 6.2 % (0-10); NRBC Flagged by Analyzer 0 % (0-5); Neutrophil # 4.74 X10^3/uL (2.7-7.7); Neutrophil % 71.7 % (47-70); Platelet Count 151 K/mm3 (150-450); RBC Distribution Width SD 43.8 fl (35.1-43.9); Red Blood Count 3.71 M/mm3 (4.2-5.4); White Blood Count 6.6 K/mm3 (4.4-11.0)
[2023-01-11 05:12] LABS: Absolute Lymphocyte Count 1.39 X10^3/uL (0.83-4.51); Absolute Neutrophil Count 4.9 X10^3/uL (2.0-7.7); Basophil# 0.03 X10^3/uL; Basophil% 0.4 % (0-1); Eosinophil# 0.05 X10^3/uL; Eosinophils% 0.7 % (0-5); Hematocrit 32.1 % (37-47); Hemoglobin 10.3 g/dL (12.0-15.0); Lymphocyte # 1.39 X10^3/ul (0.83-4.51); Lymphocyte % 20.7 % (19-41); Mean Corp Hgb Conc 32.1 g/dL (32-36); Mean Corpuscular Hgb 27.6 pg (27.0-32.0); Mean Corpuscular Volume 86.1 fL (81-99); Mean Platelet Vol. 9.7 fl (6.2-12.0); Monocyte# 0.37 X10^3/uL; Monocyte% 5.5 % (0-10); NRBC Flagged by Analyzer 0 % (0-5); Neutrophil # 4.85 X10^3/uL (2.7-7.7); Neutrophil % 72.1 % (47-70); Platelet Count 135 K/mm3 (150-450); RBC Distribution Width CV 13.9 % (11.6-14.6); RBC Distribution Width SD 43.1 fl (35.1-43.9); Red Blood Count 3.73 M/mm3 (4.2-5.4); White Blood Count 6.7 K/mm3 (4.4-11.0)
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
[2023-01-11 05:24] LABS: Fibrinogen 372 mg/dl (203-444)
--- NOTE | 2023-01-11 05:24 | DCINST_ITS ---
Discharge Instructions Diet Discharge Diet: No restrictions Activity Discharge Activity: May Not Drive (for 2 weeks or while taking narcotic pain medications.), May Shower and May Take a Tub Bath (in 7 days) May shower in (days): 0 May resume sexual activity in: 4-6 weeks Weight Bearing Status: Full weight bearing Lifting Restrictions: 20 pounds Dressing / Incision Call your doctor if your incision/area has: Continuous Slow Oozing, Sudden Increased Bleeding, Increased Pain/ Swelling, Increased Redness and Foul Smelling Discharge Call your doctor if you observe: Fever of 101 or Higher and Using more than 1 pad per hour (for 2 hours) Suture Line Care: Avoid Pulling/Pushing and Avoid Pinching/Bending Cleanse incision/area with: Soap & Water and Keep Dressing Clean & Dry Follow Up Care Please Follow Up With: Ally Tony MD When: Call [phone] to make an appointment for an incision check in 1-2 weeks. Test Results: Test results from this visit will be discussed in further detail at your follow- up appointment, if applicable. Discharge Plan Admission Admit Date/Time: 01/11/23 04:55 Attending Provider: Ally Tony Primary Care Provider: Lila Santos Discharge Orders/Prescriptions Prescriptions: New oxycodone-acetaminophen [Percocet] 5-325 mg tablet 1 tab PO Q6H PRN (Reason: pain) 7 Days Qty: 20 0RF naproxen [naproxen] 500 mg tablet 500 mg PO BID PRN PRN (Reason: Pain) Qty: 30 1RF Continued PNV-[place] 28-1-300 mg capsule 1 cap PO DAILY ferrous sulfate 325 mg (65 mg iron) tablet 325 mg PO DAILY citalopram 20 mg tablet 20 mg PO DAILY Qty: 90 3RF loratadine [Claritin] 10 mg Tablet 10 mg PO DAILY ondansetron 4 mg tablet,disintegrating 4 mg PO Q8H PRN (Reason: nausea and vomiting) Qty: 15 0RF Referrals / Follow Up: Lila Santos MD [Primary Care Provider] - Disposition Disposition (needs filled in before D/C Order can be placed): Home, Self Care
[2023-01-11] MEDS: Sodium Citrate/Citric Acid 30 ML UDC PO (05:39)
[2023-01-11] MEDS: Clindamycin 900 MG/50 ML BAG 75 MG IV (06:48)
[2023-01-11] MEDS: Oxytocin 15 Units/NS 250ml 15 UNITS/250 ML IV.SOLN 83 UNITS IV (07:41)
--- NOTE | 2023-01-11 08:12 | NURSING ---
Bedside report given to Anibal Jane RN who is assuming care of pt upon return to pt room at 0740.
[2023-01-11 09:26] LABS: Absolute Lymphocyte Count 1.04 X10^3/uL (0.83-4.51); Absolute Neutrophil Count 5.7 X10^3/uL (2.0-7.7); Basophil# 0.02 X10^3/uL; Basophil% 0.3 % (0-1); Eosinophil# 0.02 X10^3/uL; Eosinophils% 0.3 % (0-5); Hematocrit 31.7 % (37-47); Hemoglobin 10.2 g/dL (12.0-15.0); Lymphocyte # 1.04 X10^3/ul (0.83-4.51); Lymphocyte % 14.6 % (19-41); Mean Corp Hgb Conc 32.2 g/dL (32-36); Mean Corpuscular Hgb 27.6 pg (27.0-32.0); Mean Corpuscular Volume 85.7 fL (81-99); Mean Platelet Vol. 9.6 fl (6.2-12.0); Monocyte# 0.32 X10^3/uL; Monocyte% 4.5 % (0-10); NRBC Flagged by Analyzer 0 % (0-5); Neutrophil # 5.68 X10^3/uL (2.7-7.7); Neutrophil % 79.9 % (47-70); Platelet Count 164 K/mm3 (150-450); RBC Distribution Width CV 13.9 % (11.6-14.6); RBC Distribution Width SD 43.1 fl (35.1-43.9); White Blood Count 7.1 K/mm3 (4.4-11.0)
[2023-01-11] MEDS: Ketorolac 30 MG/ML Syringe IV ×3 (09:26→22:06)
[2023-01-11 10:35] LABS: Pathology Specimen OB SEE PATHOLOGY REPORT
[2023-01-11] MEDS: Lactated Ringers 1,000 ML 100 ML IV (12:11)
[2023-01-11] MEDS: Ondansetron 4 MG/2 ML Vial IV (12:12)
[2023-01-11] MEDS: Enoxaparin 40 MG/0.4 ML Syringe SC (17:55)
[2023-01-11] MEDS: 0.9% Saline Lock 10 ML Syringe IV (18:00)
[2023-01-11] MEDS: Citalopram 20 MG Tablet PO (22:07)
[2023-01-12 00:07] VITALS: BP 97/56; PULSE 79; RESP 15; TEMP 36.1; O2SAT 95
[2023-01-12 03:17] VITALS: BP 104/59; PULSE 72; RESP 16; TEMP 36.3
[2023-01-12] MEDS: Ketorolac 30 MG/ML Syringe IV (04:32)
[2023-01-12] MEDS: Acetaminophen 500 MG Tablet 1000 MG PO ×4 (04:33→23:47)
[2023-01-12 04:46] LABS: Hematocrit 26.5 % (37-47); Hemoglobin 8.4 g/dL (12.0-15.0); Mean Corp Hgb Conc 31.7 g/dL (32-36); Mean Corpuscular Hgb 27.7 pg (27.0-32.0); Mean Corpuscular Volume 87.5 fL (81-99); Mean Platelet Vol. 9.8 fl (6.2-12.0); Platelet Count 121 K/mm3 (150-450); Red Blood Count 3.03 M/mm3 (4.2-5.4); White Blood Count 7.1 K/mm3 (4.4-11.0)
[2023-01-12 08:00] VITALS: BP 116/69; PULSE 80; RESP 22; TEMP 36.3; O2SAT 99
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
[2023-01-12] MEDS: Senna/Docusate Sodium 1 Tablet PO (10:50)
[2023-01-12] MEDS: Prenatal Vits Tablet 1 TABLET PO (10:51)
[2023-01-12] MEDS: Naproxen 500 MG Tablet PO ×2 (10:51→17:47)
[2023-01-12] MEDS: SimETHICONE 80 MG Chewable Tablet PO ×3 (11:17→20:55)
[2023-01-12] MEDS: 0.9% Saline Lock 10 ML Syringe IV ×3 (11:49→14:42)
[2023-01-12 13:57] VITALS: BP 114/54; PULSE 94; RESP 20; TEMP 36.2; O2SAT 97
--- NOTE | 2023-01-12 14:50 | NURSING ---
Reviewed student nurse charting and agree. charting used for learning and educational purposes only.
[2023-01-12] MEDS: Enoxaparin 40 MG/0.4 ML Syringe SC (17:48)
[2023-01-12 20:57] VITALS: BP 123/66; PULSE 100; RESP 16; TEMP 36.4; O2SAT 99
[2023-01-12] MEDS: Citalopram 20 MG Tablet PO (21:56)
[2023-01-13] MEDS: Naproxen 500 MG Tablet PO ×2 (01:50→10:11)
[2023-01-13 01:51] VITALS: BP 113/81; PULSE 88; RESP 16; TEMP 36.7; O2SAT 99
[2023-01-13 04:24] LABS: Absolute Lymphocyte Count 1.16 X10^3/uL (0.83-4.51); Absolute Neutrophil Count 4.5 X10^3/uL (2.0-7.7); Basophil# 0.02 X10^3/uL; Basophil% 0.3 % (0-1); Eosinophil# 0.09 X10^3/uL; Eosinophils% 1.5 % (0-5); Hematocrit 25.5 % (37-47); Hemoglobin 8.2 g/dL (12.0-15.0); Lymphocyte # 1.16 X10^3/ul (0.83-4.51); Lymphocyte % 18.8 % (19-41); Mean Corp Hgb Conc 32.2 g/dL (32-36); Mean Corpuscular Hgb 27.8 pg (27.0-32.0); Mean Corpuscular Volume 86.4 fL (81-99); Monocyte# 0.37 X10^3/uL; NRBC Flagged by Analyzer 0 % (0-5); Neutrophil # 4.49 X10^3/uL (2.7-7.7); Neutrophil % 72.6 % (47-70); Platelet Count 124 K/mm3 (150-450); RBC Distribution Width CV 14.3 % (11.6-14.6); RBC Distribution Width SD 44.2 fl (35.1-43.9); Red Blood Count 2.95 M/mm3 (4.2-5.4); White Blood Count 6.2 K/mm3 (4.4-11.0)
[2023-01-13] MEDS: Acetaminophen 500 MG Tablet 1000 MG PO ×2 (06:06→12:43)
[2023-01-13 08:35] VITALS: BP 127/75; PULSE 80; TEMP 36.4; O2SAT 97
[2023-01-13] MEDS: Senna/Docusate Sodium 1 Tablet PO (10:21)
--- NOTE | 2023-01-13 11:07 | NURSING ---
This chief nursing officer was present for medication administration with [place] Student nurse.
[2023-01-13] MEDS: Prenatal Vits Tablet 1 TABLET PO (12:43)
[2023-01-13 13:00] VITALS: BP 118/51; PULSE 84; RESP 16; TEMP 36.8; O2SAT 97
--- NOTE | 2023-01-13 13:00 | PCM.PN.OB ---
Objective Data Objective Data Vital Signs: Vital Signs Temp Pulse Resp BP Pulse Ox O2 Del Method 97.5 F L 80 16 127/75 H 97 Room Air 01/13/23 08:35 01/13/23 08:35 01/13/23 01:51 01/13/23 08:35 01/13/23 08:35 01/13/23 09:23 Oxygen Delivery Method Room Air Weight: 245 lb 6.4 oz Body Mass Index (BMI) 37.3 Intake & Output: Intake and Output for Last 24 Hours 01/11/23 01/12/23 01/13/23 23:59 23:59 23:59 Intake Total 5964.57 / 5964.57 110 / 110 Output Total 2900 / 2900 600 / 600 Balance 3064.57 / 3064.57 -490 / -490 Lab / Micro Data 01/13/23 04:15 Labs: Laboratory Results - last 24 hr 01/13/23 04:15: WBC 6.2, RBC 2.95 L, Hgb 8.2 L, Hct 25.5 L, MCV 86.4, MCH 27.8, MCHC 32.2, RDW Std Deviation 44.2 H, RDW Coeff of Ravinder 14.3, Plt Count 124 L, MPV 9.0, Immature Gran % (Auto) 0.800, Neut % (Auto) 72.6 H, Lymph % (Auto) 18.8 L, [place] % (Auto) 6.0, Eos % (Auto) 1.5, Baso % (Auto) 0.3, Absolute Neuts (auto) 4.5, Absolute Lymphs (auto) 1.16, Nucleated RBC % 0
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
== END 2023-01-13 13:40 | disposition home or self-care (01) | DRG 786 ==
LOC: WPOUT 04:56 → WP 04:56
PROVIDERS: Advanced Practice Midwife; Registered Nurse; Admitting Provider Obstetrics & Gynecology; PCP Family Medicine; Referring Provider Obstetrics & Gynecology; Visit Provider Obstetrics & Gynecology
DX: O34.211 Maternal care for low transverse scar from previous cesarean delivery (principal); O60.14X0 Preterm labor third trimester with preterm delivery third trimester, not applicable or unspecified; T79.9XXA Unspecified early complication of trauma, initial encounter; D50.9 Iron deficiency anemia, unspecified; O99.344 Other mental disorders complicating childbirth; O99.02 Anemia complicating childbirth; F90.9 Attention-deficit hyperactivity disorder, unspecified type; Z37.0 Single live birth; Z3A.36 36 weeks gestation of pregnancy; O9A.22 Injury, poisoning and certain other consequences of external causes complicating childbirth; V40.6XXA Car passenger injured in collision with pedestrian or animal in traffic accident, initial encounter
CPT/HCPCS: 59025; 59050; 85025; 85027; 85384; 86850; 86900; 86901; 88307; 99221; J1756; J7120; A4216; G0378; J2405

== ENCOUNTER → 2023-08-02 | Outpatient (CLI) | payer OTHER, SELFPAY ==
--- NOTE | 2023-08-02 10:08 | RAD_ITS ---
STUDY: X-RAY - RIGHT ANKLE REASON FOR EXAM: Female, 32 years old. Ankle pain following a fall. TECHNIQUE: 3 view(s) of the ankle. COMPARISON: None. FINDINGS: Normal visualized distal tibia and fibula. Normal medial and lateral malleoli. Normal tibiotalar articulation and ankle mortise. Normal visualized talus and calcaneus. The visualized subtalar, talonavicular, calcaneocuboid and tarsal articulations are normal. Lateral soft tissue swelling. RAD/Ankle min 3 Views IMPRESSION: Lateral soft tissue swelling. Electronically Signed: Marck Brennan MD at 10:32 EDT ,
--- NOTE | 2023-08-02 10:08 | RAD_ITS ---
STUDY: X-RAY - RIGHT FOOT CLINICAL: Female, 32 years old. Pain following injury. TECHNIQUE: 3 view(s) of the foot. COMPARISON: None. FINDINGS: Normal talus, calcaneus, and tarsal bones. Normal visualized subtalar, talonavicular, calcaneocuboid, tarsal and tarsometatarsal articulations. Normal metatarsi. Normal metatarsophalangeal joint of the great toe. Normal tibial and fibular sesamoid bones. Normal interphalangeal joint of the great toe. Normal phalanges of the great toe. Normal second through fifth metatarsophalangeal joints. Normal interphalangeal joints and phalanges of the lesser toes. Soft tissue swelling. RAD/Foot min 3 Views IMPRESSION: Soft tissue swelling. Electronically Signed: Marck Brennan MD at 10:33 EDT ,
== END | disposition home or self-care (01) ==
LOC: MTRAD 10:08
PROVIDERS: PCP Family Medicine; Referring Provider Physician Assistant; Visit Provider Physician Assistant
DX: T14.90XA Injury, unspecified, initial encounter (principal)
CPT/HCPCS: 73610; 73630

== ENCOUNTER → 2024-04-09 | Outpatient (CLI) | payer OTHER, SELFPAY ==
[2024-04-09 10:23] LABS: Absolute Lymphocyte Count 1.31 X10^3/uL (0.83-4.51); Absolute Neutrophil Count 3.9 X10^3/uL (2.0-7.7); Basophil# 0.04 X10^3/uL; Basophil% 0.7 % (0-1); Eosinophil# 0.09 X10^3/uL; Eosinophils% 1.6 % (0-5); Hematocrit 38.9 % (37-47); Hemoglobin 12.2 g/dL (12.0-15.0); Lymphocyte # 1.31 X10^3/ul (0.83-4.51); Lymphocyte % 23.1 % (19-41); Mean Corp Hgb Conc 31.4 g/dL (32-36); Mean Corpuscular Hgb 26.3 pg (27.0-32.0); Mean Platelet Vol. 8.8 fl (6.2-12.0); Monocyte# 0.33 X10^3/uL; Monocyte% 5.8 % (0-10); NRBC Flagged by Analyzer 0 % (0-5); Neutrophil # 3.89 X10^3/uL (2.7-7.7); Neutrophil % 68.6 % (47-70); Platelet Count 292 K/mm3 (150-450); RBC Distribution Width CV 13.1 % (11.6-14.6); RBC Distribution Width SD 39.7 fl (35.1-43.9); Red Blood Count 4.63 M/mm3 (4.2-5.4); White Blood Count 5.7 K/mm3 (4.4-11.0)
[2024-04-09 10:48] LABS: T4 Free Direct 1.07 ng/dL (0.76-1.46)
[2024-04-09 10:56] LABS: Vitamin D,25 Hydroxy 17.3 ng/mL
[2024-04-10 04:07] LABS: Thyroid Peroxidase AB 9 IU/mL (0-34)
== END | disposition home or self-care (01) ==
LOC: BWCLAB 09:40
PROVIDERS: PCP Family Medicine; Referring Provider Nurse Practitioner Women's Health; Visit Provider Nurse Practitioner Women's Health
DX: Z13.21 Encounter for screening for nutritional disorder (principal); D50.9 Iron deficiency anemia, unspecified; R63.5 Abnormal weight gain; L65.9 Nonscarring hair loss, unspecified
CPT/HCPCS: 36415; 82306; 84439; 84443; 85025; 86376

== ENCOUNTER → 2024-07-02 | Outpatient (CLI) | payer OTHER, SELFPAY ==
[2024-07-02 09:48] LABS: Vitamin D,25 Hydroxy 43.3 ng/mL
== END | disposition home or self-care (01) ==
LOC: PAVLAB 08:45
PROVIDERS: PCP Family Medicine; Referring Provider Nurse Practitioner Women's Health; Visit Provider Nurse Practitioner Women's Health
DX: Z13.21 Encounter for screening for nutritional disorder (principal); Z13.29 Encounter for screening for other suspected endocrine disorder
CPT/HCPCS: 36415; 82306; 84443

== ENCOUNTER → 2024-11-16 | Outpatient (CLI) | payer OTHER, SELFPAY ==
--- OUTSIDE RECORDS SUMMARY | 2024-11-16 08:05 | XMS RPT_ITS | CCD ---
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 Deficiency <20 ng/mL (50nmol/L) Insufficiency 20 - 30 ng/mL (50 - 75 nmol/L) Sufficiency 30 - 100 ng/mL (75 - 250 nmol/L) Toxicity >100 ng/mL (>250 nmol/L) Performed By: #### L 100.0100, L506.0400, L501.9520, L506.1000, L3300.6900 #### [facility] [address] [place], [address] White blood cell (WBC) count Ordered By: Angelia Anaya on 04-09-2024 WBC (Bld) [#/Vol] 5.7 10*3/uL 4.4-11.0 [facility] Office Visit Reporton 2023 Office Visit Report [facility] [address] [place] [address] OFFICE VISIT Date of Service: 02/09/24 MR#: [id number] Acct: [id number] Patient: SHARI WALLACE Rep #: [id number] : 1990 Provider: LISA Riggins Age/Sex: 33/F Location: [facility] [place] Status: Signed Employer Purchased Covid Test Note: Patient here today for Covid Testing, requested by their Employer. Assessment and Plan Assessment and Plan Orders: Orders POC Beata Rapid Strep A Today POC Cepheid Covid, FluAB, RSV Today Medications: New dexamethasone 6 mg PO DAILY 5 tabs 0RF 02/09/24 1558 Date Edgard GONZALEZ Cosigner Signature: Date (if applicable) CC: [facility] Urgent Care Visit Reporton 1 Urgent Care Visit Report [facility] [address], [address] [place] [address] OFFICE VISIT Date of Service: 02/09/24 MR#: [id number] Acct: [id number] Name: SHARI WALLACE Rep #: [id number] : 1990 Provider: LISA Riggins Age/Sex: 33/F Location: [facility] [place] Status: Signed Intake Vital Signs 08/02/23 10:23 02/09/24 14:55 Height 5 ft 8 in Weight: 234 lb BMI 35.6 BP 118/82 H 112/60 Blood Pressure Location Lt brachial Lt brachial Position Sitting Sitting Respiration 14 15 Pulse 92 82 Pulse Source Monitor NIBP Temp 99.6 F H 98.7 F Temp Source Temporal Temporal Pulse Oximetry (%) 98 100 Oxygen Delivery Method room air room air Intake Visit Reasons: POS STREP THROAT Chief Complaint: ST, cough, PND, chest congest, grn mucus Bank Note Designer Required: No Is patient in pain?: Yes Allergies amoxicillin Allergy (Intermediate, Verified 02/09/24 14:55) Hives Is last menstrual period known: No Post menopausal: No Patient : No Have you fallen in the past year?: No Nurse's Note: ST, cough, PND, chest congest, grn mucus. concern for strep. 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: No pets and animals: Yes (Not managing litterbox) pets and animals: cat(s) history of recent travel: No sexually active: Yes Smoking Status: Never smoker second hand exposure: No alcohol intake: current alcohol intake frequency: holidays/special occasions only Alcohol type: wine details: Not while pregancy substance use type: does not use well-balanced diet: daily or most days caffeine: Yes Type: coffee Number of servings: 1 eating out: 1-3 times/week during the past year weight has: remained stable what type of physical activity do you participate in: walking frequency: 1-2 times per week duration: 15-30 minutes/day coy/mormon: None seatbelt use: always do you feel safe at home: Yes additional social history: Isra- FA HPI HPI Chief Complaint: ST, cough, PND, chest congest, grn mucus Details: SHARI WALLACE, is a 33 F who presents to the office today for complaint of sore throat, cough, chest congestion and green mucus. Patient denies hemoptysis, shortness of breath or difficulty breathing. No fever, chills, sweats. She states that she did have most of her symptoms lingering for the past several weeks and then started with a much more sore throat over the past 2 days. She does state being concerned for strep and is requesting a strep test at this time. She denies fever, chills or sweats. No nausea, vomiting or diarrhea. No other associated symptoms or alleviating/aggravati ng factors. ROS Const Constitutional: No other (6 system ROS completed with pertinent findings in the HPI otherwise normal.) Exam Const General: cooperative and well developed HENWA Head: normal to inspection and atraumatic Ears: hearing grossly normal bilaterally Nose: nasal discharge clear Face and sinus: normal facial exam Mouth: oral mucosae normal Throat: abnormal tonsil bilaterally hypertrophy 1+ Resp Effort Inspection: normal respiratory effort and no audible wheezes Auscultation: Bilateral: Clear to Auscultation Cardio Palpation: normal PMI Rate: regular rate Rhythm: regular rhythm Neuro General: patient alert and CN's II-XI intact bilaterally Psych Appearance: grossly normal Mental Status: mental status grossly normal Results POC Beata Rapid Strep POC Beata Rapid Strep Negative Last Edit by Lori Rojas on 02/09/24 15:14 POC CEPH COV,FluAB,RSV PCR CEPHEID COVID PCR DETECTED Last Edit by Lori Rojas on 02/09/24 15:37 CEPHEID FLU AB PCR NOT DETECTED FLU A B Last Edit by Lori Rojas on 02/09/24 15:37 CEPHEID RSV PCR NOT DETECTED Last Edit by Lori Rojas on 02/09/24 15:37 Coding Level of Care Code Off vis,est,level 3 Diagnoses Contact with or suspected exposure to other viral communicable disease Z20.828 Acute pharyngitis J02.9 Assessment and Plan Assessment and Plan (1) Contact with or suspected exposure to other viral (more content not included)... [facility] Ankle min 3 Viewson 08-02-19 24 Ankle min 3 Views [facility] [address] [place] [address] Ankle min 3 Views MR#: [id number] Acct: [id number] Name: SHARI WALLACE Rep #: [id number] : 1990 F 32 From: Marck de la o MD PCP: Dr. Lila Santos MD Status: [facility] Study: Ankle min 3 Views Date of Exam: 08/02/23 Exam# [id number] Ordering Dr: Giovany Mo [id number] STUDY: X-RAY - RIGHT ANKLE REASON FOR EXAM: Female, 32 years old. Ankle pain following a fall. TECHNIQUE: 3 view(s) of the ankle. COMPARISON: None. FINDINGS: Normal visualized distal tibia and fibula. Normal medial and lateral malleoli. Normal tibiotalar articulation and ankle mortise. Normal visualized talus and calcaneus. The visualized subtalar, talonavicular, calcaneocuboid and tarsal articulations are normal. Lateral soft tissue swelling. RAD/Ankle min 3 Views IMPRESSION: Lateral soft tissue swelling. Electronically Signed: Marck Brennan MD at 10:32 EDT , CC: Dr. Lila Santos MD; LISA Fu Podiatric Aide: Signed [facility] Foot min 3 Viewson Foot min 3 Views [facility] [address] [place] [address] Foot min 3 Views MR#: [id number] Acct: [id number] Name: SHARI WALLACE Rep #: [id number] : 1990 F 32 From: Marck de la o MD PCP: Dr. Lila Santos MD Status: REG CLI Study: Foot min 3 Views Date of Exam: 08/02/23 Exam# [id number] Ordering Dr: Giovany Mo [id number] STUDY: X-RAY - RIGHT FOOT CLINICAL: Female, 32 years old. Pain following injury. TECHNIQUE: 3 view(s) of the foot. COMPARISON: None. FINDINGS: Normal talus, calcaneus, and tarsal bones. Normal visualized subtalar, talonavicular, calcaneocuboid, tarsal and tarsometatarsal articulations. Normal metatarsi. Normal metatarsophalangeal joint of the great toe. Normal tibial and fibular sesamoid bones. Normal interphalangeal joint of the great toe. Normal phalanges of the great toe. Normal second through fifth metatarsophalangeal joints. Normal interphalangeal joints and phalanges of the lesser toes. Soft tissue swelling. RAD/Foot min 3 Views IMPRESSION: Soft tissue swelling. Electronically Signed: Marck Brennan MD at 10:33 EDT Reading Location ID and State: [address] [place] [address] , Service support , CC: Dr. Lila Santos MD; LISA Fu Podiatric Aide: Signed Normal [facility] Urgent Care Visit Reporton 0 08-02-2023 Urgent Care Visit Report [facility] [address], [address] [place], [place] [address] OFFICE VISIT Date of Service: 08/02/23 MR#: [id number] Acct: [id number] Name: SHARI WALLACE Rep #: [id number] : 1990 Provider: LISA Fu Age/Sex: 32/F Location: [facility] [place] Status: Signed Intake Vital Signs 02/24/23 08:06 08/02/23 10:23 Height 5 ft 8 in 5 ft 8 in Weight: 224 lb 6 oz 234 lb BMI 34.1 35.6 BP 130/76 H 118/82 H Blood Pressure Location Lt brachial Position Sitting Respiration 14 Pulse 92 Pulse Source Monitor Temp 99.6 F H Temp Source Temporal Pulse Oximetry (%) 98 Oxygen Delivery Method room air Intake Visit Reasons: R ANKLE/FOOT INJURY/SWOLLEN Chief Complaint: Right ankle injury, swelling pain Bank Note Designer Required: No Accompanied by: Self Is patient in pain?: Yes Pain scale (1-10): 7 Allergies amoxicillin Allergy (Intermediate, Verified 02/24/23 09:35) Hives Medications loratadine 10 mg tablet (Claritin) 10 mg PO DAILY 10/29/22 [History Confirmed 08/02/23] citalopram 20 mg tablet 20 mg PO DAILY PPD #90 tabs 11/18/22 [Rx Confirmed 08/02/23] PFSH Medical History (Updated 08/02/23 @ 10:38 by Giovany GONZALEZ, LISA) ADHD Hypertension, condition or complication macrosomia depression Right ankle sprain Right foot sprain Surgical History (Updated 08/02/23 @ 10:08 by Che De La O) Hx of wisdom tooth extraction No significant past surgical history S/P Family History Father Hypertension CVA (cerebral vascular accident) Uncle Cancer Leukemia Social History adopted: No household members: spouse and children housing: apartment number of children: 2 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: No pets and animals: Yes (Not managing litterbox) pets and animals: cat(s) history of recent travel: No sexually active: Yes Smoking Status: Never smoker second hand exposure: No alcohol intake: current alcohol intake frequency: holidays/special occasions only Alcohol type: wine details: Not while pregancy substance use type: does not use well-balanced diet: daily or most days caffeine: Yes Type: coffee Number of servings: 1 eating out: 1-3 times/week during the past year weight has: remained stable what type of physical activity do you participate in: walking frequency: 1-2 times per week duration: 15-30 minutes/day coy/mormon: None seatbelt use: always do you feel safe at home: Yes additional social history: Isra- FA HPI HPI Chief Complaint: Right ankle injury, swelling pain Details: SHARI WALLACE, is a 32 F who presents to the office today for initial evaluation status post right ankle/foot injury occurring last evening. Patient notes stepping out of truck at home, when placing weight on right foot losing balance and twisting/torquing right ankle in the process, states she is unsure if she inverted or everted her ankle but describes pain more pronounced in the medial aspect of the right ankle even though lateral soft tissue swelling is appreciated by her. PMH NC. Pain is aggravated to touch, with range of motion, and with prolonged weightbearing though no locking or giving way. No ritn-ztj-xomvzgg products taken to assist. No right knee complaints. No other associated symptoms and no other alleviating/aggravati ng factors. ROS Const Constitutional: No other (as above) Exam Const General: cooperative, healthy appearing and no acute distress Orientation: alert, awake and oriented x3 Resp Effort Inspection: normal respiratory effort and able to speak in complete sentences Cardio Rate: regular rate Pulses: radial pulses present Skin General: no rashes or lesions noted Neuro General: patient alert, patient awake, patient oriented x3 and gait normal Cognition: normal cognition Speech: speech normal Gait: normal gait Extrem General: full ROM, capillary refill normal and normal exam except as noted (R lateral ankle/foot soft tissue swelling) Psych Appearance: grossly normal Mental Status: mental status grossly normal Mood: congruent mood Affect: normal affect Speech and Movement: speech and movement normal Attitude: cooperative Coding Level of Care Code Off vis,new,level 4 Diagnoses Right ankle sprain S93.401A Right foot sprain S93.601A Assessment and Plan Assessment and Plan (1) Right ankle sprain: Status: Acute (2) Right foot sprain: Status: Acute Plan: Right ankle/foot radiographs taken today reveal no acute osseous pathology per my review, pending radiologist interpretation at time patient discharged. (more content not included)... [facility] - Microbiology an d Antimicrobial susceptibilityon 06-08-2023 SARS-CoV-2 (COVID-19) RNA YOEL+probe Ql (Unsp spec) Not detected [facility] No Panel Informationon 06-08 POC Nasal Swab Influenza A,B Not detected [facility] POC Nasal Swab RSV Not detected [facility] Absolute lymphocyte countOrd ered By: Natalie Stevens on 01-13-2023 Lymphocytes Auto (Unsp spec) [#/Vol] 1.16 10*3/uL 0.83-4.51 [facility] Basophil percentageOrdered B y: Natalie Stevens on 01-13-2023 Basophils/100 WBC (Bld) 0.3 % 0-1 [facility] Eosinophils/100 WBC (Bld) 1.5 % 0-5 [facility] Neutrophils (Bld) [#/Vol] 4.5 10*3/uL 2.0-7.7 [facility] Neutrophils/100 WBC (Bld) 72.6 % 47-70 [facility] WBC (Bld) [#/Vol] 6.2 10*3/uL 4.4-11.0 [facility] Blood erythrocytes count (nu mber/volume)Ordered By: Natalie Stevens on 01-13-2023 RBC (Bld) [#/Vol] 2.95 10*6/uL 4.2-5.4 [facility] Blood hemoglobin measurement (mass/volume)Ordered By: Natalie Stevens on 01-13-2023 Hemoglobin (Bld) [Mass/Vol] 8.2 g/dL 12.0-15.0 [facility] Blood lymphocytes/100 leukoc ytesOrdered By: Natalie Stevens on 01-13-2023 Lymphocytes/100 WBC (Bld) 18.8 % 19-41 [facility] Blood monocytes/100 leukocyt esOrdered By: Natalie Stevens on 01-13-2023 Monocytes/100 WBC (Bld) 6.0 % 0-10 [facility] Blood platelet mean volumeOr dered By: Natalie Stevens on 01-13-2023 Platelet mean volume (Bld) [Entitic vol] 9.0 fL 6.2-12.0 [facility] Determination of erythrocyte mean corpuscular volume (MCV)Ordered By: Natalie Stevens on 01-13-2023 MCV (RBC) [Entitic vol] 86.4 fL 81-99 [facility] Hematocrit Auto (Bld) [Volum e fraction]Ordered By: Natalie Stevens on 01-13-2023 Hematocrit (Bld) [Volume fraction] 25.5 % 37-47 [facility] - Hematology and Cell countsOrdered By: Natalie Stevens on 01-13-2023 Erythrocyte distribution width (RBC) [Entitic vol] 44.2 fL 35.1-43.9 [facility] Erythrocyte distribution width (RBC) [Ratio] 14.3 % 11.6-14.6 [facility] Immature granulocytes/100 WBC (Bld) 0.800 % 0.0-0.9 [facility] Comment on above: IG% - Immature Granu locytes (promyelocytes, myelocytes and metamyelocytes) > 1% indicates that a LEFT SHIFT is Present. MCH (RBC) [Entitic mass] 27.8 pg 27.0-32.0 [facility] Nucleated RBC/100 WBC (Bld) [Ratio] 0 % 0-5 [facility] MCHC Auto (RBC) [Mass/Vol]Or dered By: Natalie Stevens on 01-13-2023 MCHC (RBC) [Mass/Vol] 32.2 g/dL 32-36 [facility] Platelets bldOrdered By: Cathleen Stevens on 01-13-2023 Platelets (Bld) [#/Vol] 124 10*3/uL 150-450 [facility] No Panel InformationOrdered By: Ally Tony on 01-11-2023 Fibrinogen 372 mg/dl 203-444 [facility] - Chemistry and C hemistry - challengeon 01-07-2023 Glucose Ql (U) Negative [facility] - Urinalysison Protein Ql (U) Negative [facility] No Panel InformationOrdered By: Ally Tony on 09-01-2023 Group B Streptococcus Culture Group B Beta Streptococcus is not isolated. [facility] - Chemistry and C hemistry - challengeon 12-30-2022 Glucose Ql (U) Negative [facility] - Urinalysison Protein Ql (U) Negative [facility] Absolute lymphocyte countOrd ered By: Natalie Stevens on 12-16-2022 Lymphocytes Auto (Unsp spec) [#/Vol] 1.30 10*3/uL 0.83-4.51 [facility] Basophil percentageOrdered B y: Natalie Stevens on 12-16-2022 Basophils/100 WBC (Bld) 0.3 % 0-1 [facility] Eosinophils/100 WBC (Bld) 1.0 % 0-5 [facility] Neutrophils (Bld) [#/Vol] 5.3 10*3/uL 2.0-7.7 [facility] Neutrophils/100 WBC (Bld) 74.2 % 47-70 [facility] WBC (Bld) [#/Vol] 7.1 10*3/uL 4.4-11.0 [facility] Blood erythrocytes count (nu mber/volume)Ordered By: Natalie Stevens on 12-16-2022 RBC (Bld) [#/Vol] 3.83 10*6/uL 4.2-5.4 [facility] Blood hemoglobin measurement (mass/volume)Ordered By: Natalie Stevens on 12-16-2022 Hemoglobin (Bld) [Mass/Vol] 10.7 g/dL 12.0-15.0 [facility] Blood lymphocytes/100 leukoc ytesOrdered By: Natalie Stevens on 12-16-2022 Lymphocytes/100 WBC (Bld) 18.2 % 19-41 [facility] Blood monocytes/100 leukocyt esOrdered By: Natalie Stevens on 12-16-2022 Monocytes/100 WBC (Bld) 5.6 % 0-10 [facility] Blood platelet mean volumeOr dered By: Natalie Stevens on 12-16-2022 Platelet mean volume (Bld) [Entitic vol] 9.0 fL 6.2-12.0 [facility] Determination of erythrocyte mean corpuscular volume (MCV)Ordered By: Natalie Stevens on 12-16-2022 MCV (RBC) [Entitic vol] 88.5 fL 81-99 [facility] Hematocrit Auto (Bld) [Volum e fraction]Ordered By: Natalie Stevens on 12-16-2022 Hematocrit (Bld) [Volume fraction] 33.9 % 37-47 [facility] - Chemistry and C hemistry - challengeon 12-16-2022 Glucose Ql (U) Negative [facility] - Hematology and Cell countsOrdered By: Natalie Stevens on 12-16-2022 Erythrocyte distribution width (RBC) [Entitic vol] 45.6 fL 35.1-43.9 [facility] Erythrocyte distribution width (RBC) [Ratio] 14.3 % 11.6-14.6 [facility] Immature granulocytes/100 WBC (Bld) 0.700 % 0.0-0.9 [facility] Comment on above: IG% - Immature Granu locytes (promyelocytes, myelocytes and metamyelocytes) > 1% indicates that a LEFT SHIFT is Present. MCH (RBC) [Entitic mass] 27.9 pg 27.0-32.0 [facility] Nucleated RBC/100 WBC (Bld) [Ratio] 0 % 0-5 [facility] - Urinalysison Protein Ql (U) Negative [facility] MCHC Auto (RBC) [Mass/Vol]Or dered By: Natalie Stevens on 12-16-2022 MCHC (RBC) [Mass/Vol] 31.6 g/dL 32-36 [facility] Platelets bldOrdered By: Cathleen Stevesn on 12-16-2022 Platelets (Bld) [#/Vol] 150 10*3/uL 150-450 [facility] Quantitative serum or plasma 3 hour gestational glucose tolerance panelOrdered By: Rehana Nelson on 11-22-2022 Glucose tolerance 3 hours gestational panel See comment [facility] Comment on above: FASTING 86 Col: 11/06 11/28 0650GLUCOSE TOLERANCE TEST FOR Reference Interval GESTATIONAL DIABETES Fasting <105 mg/dL 1 hour <190 mg/dl 2 hour <165 mg/dl 3 hour <145 mg/dl 1 HR GLU 174 Col: 11/22/22 0753 2 HR GLU 138 Col: 11/22/22 0852 3 HR GLU 67 Col: 11/22/22 0954 Laboratory - Chemistry and C hemistry - challengeon 11-18-2022 Glucose Ql (U) Negative [facility] - Urinalysison Protein Ql (U) Negative [facility] Absolute lymphocyte countOrd ered By: Rehana Nelson on 11-04-2022 Lymphocytes Auto (Unsp spec) [#/Vol] 1.05 10*3/uL 0.83-4.51 [facility] Basophil percentageOrdered B y: Rehana Nelson on 11-04-2022 Basophils/100 WBC (Bld) 0.2 % 0-1 [facility] Eosinophils/100 WBC (Bld) 1.0 % 0-5 [facility] Neutrophils (Bld) [#/Vol] 4.6 10*3/uL 2.0-7.7 [facility] Neutrophils/100 WBC (Bld) 77.8 % 47-70 [facility] WBC (Bld) [#/Vol] 5.9 10*3/uL 4.4-11.0 [facility] Blood erythrocytes count (nu mber/volume)Ordered By: Rehana Nelson on 11-04-2022 RBC (Bld) [#/Vol] 3.66 10*6/uL 4.2-5.4 [facility] Blood hemoglobin measurement (mass/volume)Ordered By: Rehana Nelson on 11-04-2022 Hemoglobin (Bld) [Mass/Vol] 10.2 g/dL 12.0-15.0 [facility] Blood lymphocytes/100 leukoc ytesOrdered By: Rehana Nelson on 11-04-2022 Lymphocytes/100 WBC (Bld) 17.8 % 19-41 [facility] Blood monocytes/100 leukocyt esOrdered By: Rehana Nelson on 11-04-2022 Monocytes/100 WBC (Bld) 2.7 % 0-10 [facility] Blood platelet mean volumeOr dered By: Rehana Nelson on 11-04-2022 Platelet mean volume (Bld) [Entitic vol] 8.5 fL 6.2-12.0 [facility] Determination of erythrocyte mean corpuscular volume (MCV)Ordered By: Rehana Nelson on 11-04-2022 MCV (RBC) [Entitic vol] 86.9 fL 81-99 [facility] Gestational diabetes screen 1-hour screen with 50g oral glucose loadOrdered By: Rehana Nelson on 11-04-2022 Glucose 1 Hr post 50 g glucose PO [Mass/Vol] 159 mg/dL 70-140 [facility] HIV 1 and HIV-2 antibody ass ay with HIV-1 p24 antigen detectionOrdered By: Rehana Nelson on 11-04-2022 HIV 1+2 Ab+HIV1 p24 Ag IA Ql Non-Reactive Nonreactive [facility] Hematocrit Auto (Bld) [Volum e fraction]Ordered By: Rehana Nelson on 11-04-2022 Hematocrit (Bld) [Volume fraction] 31.8 % 37-47 [facility] - Chemistry and C hemistry - challengeon 11-04-2022 Glucose Ql (U) Negative [facility] - Hematology and Cell countsOrdered By: Rehana Nelson on 11-04-2022 Erythrocyte distribution width (RBC) [Entitic vol] 40.3 fL 35.1-43.9 [facility] Erythrocyte distribution width (RBC) [Ratio] 12.7 % 11.6-14.6 [facility] Immature granulocytes/100 WBC (Bld) 0.500 % 0.0-0.9 [facility] Comment on above: IG% - Immature Granu locytes (promyelocytes, myelocytes and metamyelocytes) > 1% indicates that a LEFT SHIFT is Present. MCH (RBC) [Entitic mass] 27.9 pg 27.0-32.0 [facility] Nucleated RBC/100 WBC (Bld) [Ratio] 0 % 0-5 [facility] - Urinalysison Protein Ql (U) Negative [facility] MCHC Auto (RBC) [Mass/Vol]Or dered By: Rehana Nelson on 11-04-2022 MCHC (RBC) [Mass/Vol] 32.1 g/dL 32-36 [facility] Platelets bldOrdered By: Winnie Nelson on 11-04-2022 Platelets (Bld) [#/Vol] 185 10*3/uL 150-450 [facility] Serum Treponema species anti body detectionOrdered By: Rehana Nelson on 11-04-2022 Treponema sp Ab Ql (S) Non-Reactive [facility] Absolute lymphocyte countOrd ered By: Adriana Betancourt on 10-29-2022 Lymphocytes Auto (Unsp spec) [#/Vol] 0.71 10*3/uL 0.83-4.51 [facility] Basophil percentageOrdered B y: Ally Tony on 10-29-2022 Basophil percentage 0 SEEN /hpf 0-5 [facility] [facility] Basophil percentageOrdered B y: Adriana Betancourt on 10-29-2022 Basophils/100 WBC (Bld) 0.4 % 0-1 [facility] Eosinophils/100 WBC (Bld) 0.1 % 0-5 [facility] Neutrophils (Bld) [#/Vol] 6.9 10*3/uL 2.0-7.7 [facility] Neutrophils/100 WBC (Bld) 84.7 % 47-70 [facility] WBC (Bld) [#/Vol] 8.1 10*3/uL 4.4-11.0 [facility] Bilirubin Test strip Ql (U)O rdered By: Ally Tony on 10-29-2022 Bilirubin Ql (U) Negative Negative [facility] Blood erythrocytes count (nu mber/volume)Ordered By: Adriana Betancourt on 10-29-2022 RBC (Bld) [#/Vol] 3.54 10*6/uL 4.2-5.4 [facility] Blood hemoglobin measurement (mass/volume)Ordered By: Adriana Betancourt on 10-29-2022 Hemoglobin (Bld) [Mass/Vol] 9.9 g/dL 12.0-15.0 [facility] Blood lymphocytes/100 leukoc ytesOrdered By: Adriana Betancourt on 10-29-2022 Lymphocytes/100 WBC (Bld) 8.7 % 19-41 [facility] Blood monocytes/100 leukocyt esOrdered By: Adriana Betancourt on 10-29-2022 Monocytes/100 WBC (Bld) 5.7 % 0-10 [facility] Blood platelet mean volumeOr dered By: Adriana Betancourt on 10-29-2022 Platelet mean volume (Bld) [Entitic vol] 9.0 fL 6.2-12.0 [facility] COVID-19 virus antigen assay Ordered By: Ally Tony on 10-29-2022 SARS-CoV-2 (COVID-19) Ag IA.rapid Ql (Resp) [facility] Culture, urineOrdered By: Concha Tony on 10-29-2022 Bacteria identified Cx Nom (U) Positive [facility] Determination of erythrocyte mean corpuscular volume (MCV)Ordered By: Adriana Betancourt on 10-29-2022 MCV (RBC) [Entitic vol] 87.3 fL 81-99 [facility] Hematocrit Auto (Bld) [Volum e fraction]Ordered By: Adriana Betancourt on 10-29-2022 Hematocrit (Bld) [Volume fraction] 30.9 % 37-47 [facility] Ketones Test strip Ql (U)Ord ered By: Ally Tony on 10-29-2022 Ketones Ql (U) 50 mg/dl Negative [facility] Laboratory - Hematology and Cell countsOrdered By: Adriana Betancourt on 10-29-2022 Erythrocyte distribution width (RBC) [Entitic vol] 41.3 fL 35.1-43.9 [facility] Erythrocyte distribution width (RBC) [Ratio] 13.1 % 11.6-14.6 [facility] Immature granulocytes/100 WBC (Bld) 0.400 % 0.0-0.9 [facility] Comment on above: IG% - Immature Granu locytes (promyelocytes, myelocytes and metamyelocytes) > 1% indicates that a LEFT SHIFT is Present. MCH (RBC) [Entitic mass] 28.0 pg 27.0-32.0 [facility] Nucleated RBC/100 WBC (Bld) [Ratio] 0 % 0-5 [facility] MCHC Auto (RBC) [Mass/Vol]Or dered By: Adriana Betacnourt on 10-29-2022 MCHC (RBC) [Mass/Vol] 32.0 g/dL 32-36 [facility] Mucus LM Ql (Urine sed)Order ed By: Ally Tony on 10-29-2022 Mucus Ql (Urine sed) 0 SEEN /hpf [facility] Nitrite Test strip Ql (U)Ord ered By: Ally Tony on 10-29-2022 Nitrite Ql (U) Negative Negative [facility] Platelets bldOrdered By: Harinder Betancourt on 10-29-2022 Platelets (Bld) [#/Vol] 171 10*3/uL 150-450 [facility] Protein Test strip Ql (U)Ord ered By: Ally Tony on 10-29-2022 Protein Ql (U) Negative Negative [facility] Squamous epithelial cells de tection in urine sediment by light microscopyOrdered By: Ally Tony on 10-29-2022 Epithelial cells.squamous LM Ql (Urine sed) 0-5 SEEN /hpf 5-10 [facility] Urine blood detectionOrdered By: Ally Tony on 10-29-2022 RBC Ql (U) Negative Negative [facility] RBC Ql (U) 0 SEEN /hpf 0-5 [facility] Urine clarityOrdered By: Dewayne Tony on 10-29-2022 Clarity (U) Clear Clear [facility] Urine color determinationOrd ered By: Ally Tony on 10-29-2022 Color (U) Yellow Yellow [facility] Urine glucose detectionOrder ed By: Ally Tony on 10-29-2022 Glucose Ql (U) Normal mg/dl Normal [facility] Urine leukocyte esterase det ection by dipstickOrdered By: Ally Tony on 10-29-2022 Leukocyte esterase Test strip Ql (U) 25 /ul Negative [facility] Urine pHOrdered By: Ally shields on 10-29-2022 pH (U) 7.0 [pH] 5.0 - 8.0 [facility] Urine sediment bacteria coun t by microscopy (number/high power field)Ordered By: Ally Tony on 10-29-2022 Bacteria LM.HPF (Urine sed) [#/Area] 0 /[HPF] None Seen [facility] Urine specific gravity measu rementOrdered By: Ally Tony on 10-29-2022 Specific gravity (U) [Rel density] 1.010 1.002-1.030 [facility] Urobilinogen Auto test strip Ql (U)Ordered By: Ally Tony on 10-29-2022 Urobilinogen Ql (U) Normal mg/dl Normal [facility] Laboratory - Chemistry and C hemistry - challengeon 10-07-2022 Glucose Ql (U) Negative [facility] Laboratory - Urinalysison Protein Ql (U) Negative [facility] - Chemistry and C hemistry - challengeon 09-06-2022 Glucose Ql (U) Negative [facility] Laboratory - Urinalysison Protein Ql (U) Negative [facility] Laboratory - Chemistry and C hemistry - challengeon 08-09-2022 Glucose Ql (U) Negative [facility] Laboratory - Urinalysison Protein Ql (U) Negative [facility] Laboratory - Chemistry and C hemistry - challengeon 07-15-2022 Glucose Ql (U) Negative [facility] Laboratory - Urinalysison Protein Ql (U) Negative [facility] No Panel InformationOrdered By: Dr. Nelson on 07-15-2022 Miscellaneous Test Comment MAILED SPECIMEN [facility] Culture, urineOrdered By: Dr Lenin Nelson on 06-19-2022 Bacteria identified Cx Nom (U) Culture exhibits no growth. [facility] Absolute lymphocyte countOrd ered By: Dr. Nelson on 06-17-2022 Lymphocytes Auto (Unsp spec) [#/Vol] 1.17 10*3/uL 0.83-4.51 [facility] Basophil percentageOrdered B y: Dr. Nelson on 06-17-2022 Basophils/100 WBC (Bld) 0.6 % 0-1 [facility] Bilirubin [Mass/Vol] 0.40 mg/dL 0.20-1.00 [facility] Comment on above: For patients on eltr ombopag therapy, use of Dimension [place] TBIL is not recommended. Chloride [Moles/Vol] 102 mmol/L 98-107 [facility] Eosinophils/100 WBC (Bld) 0.8 % 0-5 [facility] Glucose [Mass/Vol] 120 mg/dL 74-106 [facility] Comment on above: Fasting Glucose resu lt from 100 to 125 mg/dL suggests IMPAIRED HOMEOSTASIS per A.D.A. criteria. Neutrophils (Bld) [#/Vol] 4.9 10*3/uL 2.0-7.7 [facility] Neutrophils/100 WBC (Bld) 75.8 % 47-70 [facility] Potassium [Moles/Vol] 3.7 mmol/L 3.5-5.1 [facility] Protein [Mass/Vol] 7.3 g/dL 6.4-8.2 [facility] Sodium [Moles/Vol] 137 mmol/L 136-145 [facility] WBC (Bld) [#/Vol] 6.4 10*3/uL 4.4-11.0 [facility] Blood erythrocytes count (nu mber/volume)Ordered By: Dr. Nelson on 06-17-2022 RBC (Bld) [#/Vol] 4.34 10*6/uL 4.2-5.4 [facility] Blood hemoglobin measurement (mass/volume)Ordered By: Dr. Nelson on 06-17-2022 Hemoglobin (Bld) [Mass/Vol] 12.3 g/dL 12.0-15.0 [facility] Blood lymphocytes/100 leukoc ytesOrdered By: Dr. Nelson on 06-17-2022 Lymphocytes/100 WBC (Bld) 18.2 % 19-41 [facility] Blood monocytes/100 leukocyt esOrdered By: Dr. Nelson on 06-17-2022 Monocytes/100 WBC (Bld) 4.4 % 0-10 [facility] Blood platelet mean volumeOr dered By: Dr. Nelson on 06-17-2022 Platelet mean volume (Bld) [Entitic vol] 8.6 fL 6.2-12.0 [facility] Cervical or vagninal specime n microscopic examination by cytology stain (reported asOrdered By: Dr. Tony on 06-17-2022 Cytology report Cyto stain Doc (Cvx/Vag) Comment . [facility] Comment on above: The Pap smear is a s creening test designed to aid in thedetection of premalignant and malignant conditions of theuterine cervix. It is not a diagnostic procedure andshould not be used as the sole means of detecting cervicalcancer. Both false-positive and false-negative reports dooccur. Chlamydia trachomatis rRNA d etection by probe and target amplification methodOrdered By: Dr. Nelson on 06-17-2022 C. trachomatis rRNA YOEL+probe Ql (Unsp spec) Negative Negative [facility] Detection in cervical specim en of any of human papilloma virus (HPV) 16, 18, 31, 33,Ordered By: Dr. Tony on 06-17-2022 HPV 16+18+31+33+35+39+45+51+ 52+56+58+59+66+68 DNA Probe+sig amp Ql (Cvx) Negative Negative [facility] Comment on above: This nucleic acid am plification test detects fourteen high-risk HPV types (16,18,31,33,35,39,45,51,52,56,58,59,66,68)without differentiation. Determination of erythrocyte mean corpuscular volume (MCV)Ordered By: Dr. Nelson on 06-17-2022 MCV (RBC) [Entitic vol] 84.6 fL 81-99 [facility] Gestational diabetes screen 1-hour screen with 50g oral glucose loadOrdered By: Dr. Nelson on 06-17-2022 Glucose 1 Hr post 50 g glucose PO [Mass/Vol] 120 mg/dL 70-140 [facility] HIV 1 and HIV-2 antibody ass ay with HIV-1 p24 antigen detectionOrdered By: Dr. Nelson on 06-17-2022 HIV 1+2 Ab+HIV1 p24 Ag IA Ql Non-Reactive Nonreactive [facility] Hematocrit Auto (Bld) [Volum e fraction]Ordered By: Dr. Nelson on 06-17-2022 Hematocrit (Bld) [Volume fraction] 36.7 % 37-47 [facility] Laboratory - Chemistry and C hemistry - challengeOrdered By: Dr. Nelson on 06-17-2022 ALP [Catalytic activity/Vol] 50 U/L 45-117 [facility] ALT [Catalytic activity/Vol] 17 U/L 13-56 [facility] CO2 [Moles/Vol] 28.0 mmol/L 21.0-32.0 [facility] Globulin (S) [Mass/Vol] 3.6 g/dL 2.2-4.2 [facility] Urea nitrogen/Creatinine [Mass ratio] 14.2 mg/mg 10-20 [facility] Laboratory - CytologyOrdered By: Dr. Tony on 06-17-2022 [employer] Cyto stain Nom (Cvx/Vag) [ID] Comment . [facility] Comment on above: Wei Ramirez totechnologist Laboratory - Hematology and Cell countsOrdered By: Dr. Nelson on 06-17-2022 Erythrocyte distribution width (RBC) [Entitic vol] 38.5 fL 35.1-43.9 [facility] Erythrocyte distribution width (RBC) [Ratio] 12.4 % 11.6-14.6 [facility] Immature granulocytes/100 WBC (Bld) 0.200 % 0.0-0.9 [facility] Comment on above: IG% - Immature Granu locytes (promyelocytes, myelocytes and metamyelocytes) > 1% indicates that a LEFT SHIFT is Present. MCH (RBC) [Entitic mass] 28.3 pg 27.0-32.0 [facility] Nucleated RBC/100 WBC (Bld) [Ratio] 0 % 0-5 [facility] Laboratory - Microbiology an d Antimicrobial susceptibilityOrdered By: Dr. Nelson on 06-17-2022 N. gonorrhoeae DNA YOLE+probe Ql (Unsp spec) Negative Negative [facility] Comment on above: Performed at: =G - L [address] [id number] Director: Darcie Villalpando MD, Phone: [phone] Laboratory - Miscellaneous t estsOrdered By: Dr. Tony on 06-17-2022 Service comment (Unsp spec) [Interp] Comment . [facility] Comment on above: This liquid based Th inPrep(R) pap test was screened withthe use of an image guided system. Service comment (Unsp spec) [Interp] . . [facility] Liquid-based cerv Pap + CT/G C by YOEL w reflex to high-risk HPV for ASCUSOrdered By: Dr. Tony on 06-17-2022 Cytology report Cyto stain.thin prep Doc (Cvx/Vag) Comment . [facility] Comment on above: Criteria not met, HP V Genotype not performed.Performed at: - [facility] [id number] Director: Darcie Villalpando MD, Phone: [phone] at: =G - [facility] [address] [id number] Director: Darcie Villalpando MD, Phone: [phone] MCHC Auto (RBC) [Mass/Vol]Or dered By: Dr. Nelson on 06-17-2022 MCHC (RBC) [Mass/Vol] 33.5 g/dL 32-36 [facility] No Panel InformationOrdered By: Dr. Tony on 06-17-2022 Pathology report final diagnosis Narrative Comment . [facility] Comment on above: NEGATIVE FOR INTRAEP ITHELIAL LESION OR MALIGNANCY. No Panel InformationOrdered By: Dr. Nelson on 06-17-2022 Estimated GFR (MDRD) Amer 160 mL/min >60 [facility] Comment on above: GFR Calc Estimated GFR (MDRD) Non-Af Amer 133 mL/min >60 [facility] Comment on above: Non- GFR Calc Hepatitis B Surface Antigen Non-Reactive Nonreactive [facility] Hepatitis C Antibody Non-Reactive Nonreactive [facility] Comment on above: Non Reactive: < 0.8 Equivocal: >/= 0.8 to < 1.0 Reactive: >/= 1.0The CDC recommends that a reactive/equivocal HCV antibody result be followed up by the HCV Nucleic Acid Amplificationtest (526003) Rubella IgG Antibody Reactive Nonreactive [facility] Comment on above: Antibody Results Int erpretation of Immune Status Non Reactive Presumed Non-Immune Equivocal Equivocal Reactive Presumed Immune Platelets bldOrdered By: Dr. Nelson on 06-17-2022 Platelets (Bld) [#/Vol] 241 10*3/uL 150-450 [facility] Serum Treponema species anti body detectionOrdered By: Dr. Nelson on 06-17-2022 Treponema sp Ab Ql (S) Non-Reactive [facility] Serum or plasma albumin neris urement (mass/volume)Ordered By: Dr. Nelson on 06-17-2022 Albumin [Mass/Vol] 3.7 g/dL 3.2-5.0 [facility] Serum or plasma albumin/glob ulin mass ratioOrdered By: Dr. Nelson on 06-17-2022 Albumin/Globulin [Mass ratio] 1.0 {ratio} 0.9-2.4 [facility] Serum or plasma calcium neris urement (mass/volume)Ordered By: Dr. Nelson on 06-17-2022 Calcium [Mass/Vol] 9.1 mg/dL 8.5-10.1 [facility] Serum or plasma creatinine m easurement (mass/volume)Ordered By: Dr. Nelson on 06-17-2022 Creatinine [Mass/Vol] 0.56 mg/dL 0.55-1.02 [facility] Comment on above: The validity of the calculated GFR & GFRAA in patients over 70 years has not been determined. Clinical correlation is essential. Serum or plasma urea nitroge n measurement (mass/volume)Ordered By: Dr. Nelson on 06-17-2022 Urea nitrogen [Mass/Vol] 8 mg/dL 7-18 [facility] Thin prep Papanicolaou smear with manual screeningOrdered By: Dr. Nelson on 06-17-2022 Thin prep Papanicolaou smear with manual screening 9 U/L 15-37 [facility] Thin prep Papanicolaou smear with manual screening 7 5-15 [facility] Urine creatinine measurement (mass/volume)Ordered By: Dr. Nelson on 06-17-2022 Creatinine (U) [Mass/Vol] 82.90 mg/dL NO RANGE EST. [facility] Urine protein measurement (m ass/volume)Ordered By: Dr. Nelson on 06-17-2022 Protein (U) [Mass/Vol] mg/dL 0.0-11.8 [facility] Urine protein/creatinine mas s ratioOrdered By: Dr. Nelson on 06-17-2022 Protein/Creatinine (U) [Mass ratio] TNP [facility] Comment on above: Test not performed .Auto Diffon 11-26-2020 Basophil, Absolute 0.00 10 3/mcL Normal 0.00-0.27 [facility] ([place]) Comment on above: Performed By: #### C BC, ADIFF, ANEU, FERR, FE #### [facility] [address] [place] [id number] Basophils/100 WBC (Bld) 0.1 % Normal 0.0-2.5 [facility] ([place]) Comment on above: Performed By: #### C BC, ADIFF, ANEU, FERR, FE #### [address] [address] Eosinophil, Absolute 0.10 10 3/mcL Normal 0.00-0.65 [facility] ([place] Comment on above: Performed By: #### C BC, ADIFF, ANEU, FERR, FE #### [address] [address] Eosinophils/100 WBC (Bld) 2.7 % Normal 0.0-6.0 [facility] ([place]) Comment on above: Performed By: #### C BC, ADIFF, ANEU, FERR, FE #### [address] [address] Lymphocyte, Absolute 0.80 10 3/mcL Low 0.90-4.32 [facility] ([place] Comment on above: Performed By: #### C BC, ADIFF, ANEU, FERR, FE #### [address] [address] Lymphocytes/100 WBC (Bld) 18.2 % Low 20.0-40.0 [facility] ([place] Comment on above: Performed By: #### C BC, ADIFF, ANEU, FERR, FE #### [address] [address] Monocyte, Absolute 0.30 10 3/mcL Normal 0.09-1.40 [facility] ([place] Comment on above: Performed By: #### C BC, ADIFF, ANEU, FERR, FE #### [address] [address] Monocytes/100 WBC (Bld) 6.4 % Normal 2.0-13.0 [facility] ([place] Comment on above: Performed By: #### C BC, ADIFF, ANEU, FERR, FE #### [address] [address] Neutrophils/100 WBC (Bld) 72.6 % Normal 50.0-75.0 [facility] ([place] Comment on above: Performed By: #### C BC, ADIFF, ANEU, FERR, FE #### [address] [address] .NEUABSon 11-26-2020 Neutrophil, Absolute 3.20 10 3/mcL Normal 2.25-8.10 [facility] ([place] Comment on above: Performed By: #### C BC, ADIFF, ANEU, FERR, FE #### [address] [address] CBCon 11-26-2020 Erythrocyte distribution width (RBC) [Ratio] 14.4 % Normal 11.5-15.5 [facility] ([place] Comment on above: Order Comment: today Performed By: #### C BC, ADIFF, ANEU, FERR, FE #### [place] [address] Hematocrit (Bld) [Volume fraction] 39.4 % Normal 34.0-46.0 [facility] ([place] Comment on above: Order Comment: today Performed By: #### C BC, ADIFF, ANEU, FERR, FE #### [place] [address] Hgb 12.8 G/dL Normal 12.0-16.0 [facility] ([place] Comment on above: Order Comment: today Performed By: #### C BC, ADIFF, ANEU, FERR, FE #### [address] [address] MCH (RBC) [Entitic mass] 28.0 pg Normal 27.0-33.0 [facility] ([place] Comment on above: Order Comment: today Performed By: #### C BC, ADIFF, ANEU, FERR, FE #### [place] [id number] MCHC 32.5 G/dL Normal 32.0-36.0 [facility] ([place] Comment on above: Order Comment: today Performed By: #### C BC, ADIFF, ANEU, FERR, FE #### [place] [address] MCV (RBC) [Entitic vol] 86.1 fL Normal 80.0-99.0 [facility] ([place]) Comment on above: Order Comment: today Performed By: #### C BC, ADIFF, ANEU, FERR, FE #### [place] [address] Platelet 237 10 3/mcL Normal 150-450 [facility] ([place] Comment on above: Order Comment: today Performed By: #### C BC, ADIFF, ANEU, FERR, FE #### [place] [address] Platelet mean volume (Bld) [Entitic vol] 7.4 fL Normal 6.6-10.5 [facility] ([place] Comment on above: Order Comment: today Performed By: #### C BC, ADIFF, ANEU, FERR, FE #### [place] [address] RBC 4.57 10 6/mcL Normal 4.10-5.30 [facility] ([place] Comment on above: Order Comment: today Performed By: #### C BC, ADIFF, ANEU, FERR, FE #### [place] [address] WBC 4.40 10 3/mcL Low 4.50-10.80 [facility] ([place] Comment on above: Order Comment: today Performed By: #### C BC, ADIFF, ANEU, FERR, FE #### [place] [address] FEon 11-26-2020 Iron [Mass/Vol] 112 ug/dL Normal 50-170 [facility] ([place] Comment on above: Order Comment: today Performed By: #### C BC, ADIFF, ANEU, FERR, FE #### [place] [address] Dong 11-26-2020 Ferritin [Mass/Vol] 44.0 ng/mL Normal 8.0-252.0 [facility] ([place]) Comment on above: Order Comment: today Performed By: #### C BC, ADIFF, ANEU, FERR, FE #### [place] [address] Progress Noteon 11-28-2019 [employer] Maintainer Authentication Interface Message Text Met with patient. Here for unilateral left hydronephrosis Medical, surgical and family hx reviewed Cystic fibrosis DNA low risk Hx ADHD-no meds Psycho/Social risk: Support System: [employer] Stressors: denies Family Dynamics: lives with Behavioral Health Issues: denies Work History: multimedia artist Type of Work: [employer] Information on [facility] services given. Consent to share information with [facility] team, OB and payroll specialist signed. Pt plans to deliver at [place] with Dr Tony. Clinic Md Associate is likely [facility] [place] but still deciding. male fetus- name is [place] Method of feeding: bottle Ultrasound findings today: See report in procedures for details. Pt will follow up monthly for reevaluation of renals Reinforced continued OB care with Dr Tony Normal [facility] [employer] Maintainer Authentication Interface Message Text [facility] genetic counseling note Consultation has been requested by Dr. Tony Reason for Referral Left pyelectasis History: (Detailed history is noted in the genetic counselor's note) The ultrasound performed at this visit confirmed the previous findings. Please refer to the ultrasound report for full details. Genetic Counseling Summary I discussed with the patient the following issues: 1. The need for continued cares with her primary OB 2. We talked about the growth profile today and the overall is at the 81st with AC at the 92nd and she reports both she and her were big babies 3. GCT results are this Tuesday in Dr. Tony's office Follow Up She expressed understanding of the above information. Recommendations and Treatment Center Plan of Care: Treatment Center Plan of Care Diagnosis: UTD A2-3, unilateral (left) hydronephrosis. Cell free DNA aneuploidy screening is low risk; Declined invasive testing. Plan: 1. Continued obstetrical care with her primary seafood manager is recommended. 2. Follow up q4 weeks to evaluate biometric parameters and renals. These are planned with the Treatment Center. 3. surveillance as follows: as clinically indicated. 4. Delivery is appropriate at your local institution with follow up as indicated. 5. Mode and timing of delivery are based on the usual obstetrical indications. 6. Pediatric provider to determine if additional evaluations are recommended prior to discharge. 7. Amoxicillin prophylaxis, 10 mg/kg per day. 8. Renal ultrasound and consultation with Pediatric Urology within 1 month after . Please call [facility] at [phone]. 9. Other follow up as clinically indicated. The total patient time of the visit was 20 minutes, of which greater than 50% of the time was spent counseling and coordinating care. Britni Hamilton MD [facility] Progress Noteon 10-25-2019 [employer] Maintainer Authentication Interface Message Text Dating for consult [facility] CNOVon 03-28-2018 CNOV Office Visit ([facility] ) SHARI WALLACE ([id number]) 1990 F Date Time Provider Department 03/28/18 3:00 PM SHARON NOVAK ([facility]) [facility] During your visit today, we recorded the following information about you: Temperature Pulse Respiration Blood pressure 97.5 degrees 76/minute 16/minute 120/74 Weight Last Period 79.4 kg 03/20/18 Sharon Novak APRN.VICE PRESIDENT PAYER 03/28/2018 3:59 PM Signed Subjective HPI HPI Shari Mathew RODRIGO is a 27 year old female who presents today for CC of bilateral ear pain, dizziness. This started 5 days ago. Has tried otc medication. Symptoms are worsened by positional changes. Risk factors none. Denies possibility of being . nonsmoker. Has environmental allergies, have been getting progressively worse. .Patient presents with: Ear Pain: bilateral and dizziness x 5 days No past medical history on file. No past surgical history on file. ALLERGIES Amoxicillin -This section reviewed with patient, no changes MEDICATIONS NORGESTIMATE-ETHINYL ESTRADIOL (TRINESSA, 28, ORAL) Take by mouth. methylphenidate (RITALIN) 10 mg tablet Take 10 mg by mouth one time only. In AM methylphenidate (RITALIN) 5 mg tablet Take 5 mg by mouth one time only. In PM cyclobenzaprine (FLEXERIL) 10 mg tablet Take 1 tablet by mouth three times daily as needed for Muscle Spasm. No family history on file. Social History Substance Use Topics - Smoking status: Never Smoker - Smokeless tobacco: Never Used - Alcohol use Not on file Review of Systems Constitutional: Negative for chills, fever and weight loss. HENT: Positive for congestion and sore throat. Negative for ear pain and nosebleeds. Respiratory: Positive for cough. Negative for shortness of breath and wheezing. Musculoskeletal: Negative for neck pain. Objective Blood pressure 120/74, pulse 76, temperature 36.4 ?C (97.5 ?F), temperature source Tympanic, resp. rate 16, weight 79.4 kg (175 lb), last menstrual period 03/20/2018. Physical Exam Constitutional: She is oriented to person, place, and time and well-developed, well-nourished, and in no distress. Non-toxic appearance. She does not have a sickly appearance. No distress. HENT: Head: Normocephalic and atraumatic. Right Ear: Hearing, external ear and ear canal normal. Tympanic membrane is bulging (mild, clear fluid behind). Tympanic membrane is not perforated and not erythematous. Left Ear: Hearing, external ear and ear canal normal. Tympanic membrane is bulging (mild, clear fluid behind). Tympanic membrane is not perforated and not erythematous. Nose: Nose normal. Mouth/Throat: Uvula is midline, oropharynx is clear and moist and mucous membranes are normal. Eyes: Pupils are equal, round, and reactive to light. Conjunctivae and lids are normal. Right eye exhibits no discharge. Left eye exhibits no discharge. No scleral icterus. Neck: Trachea normal and normal range of motion. Neck supple. Cardiovascular: Normal rate, regular rhythm and normal heart sounds. Pulmonary/Chest: Effort normal and breath sounds normal. Lymphadenopathy: She has no cervical adenopathy. Neurological: She is alert and oriented to person, place, and time. She has normal sensation, normal strength, normal reflexes and intact cranial nerves. She is not disoriented. She displays no weakness and facial symmetry. She exhibits normal muscle tone. Gait normal. Gait normal. Reflex Scores: Bicep reflexes are 2+ on the right side and 2+ on the left side. Patellar reflexes are 2+ on the right side and 2+ on the left side. Skin: No rash noted. She is not diaphoretic. ASSESSMENT/PLAN: 1. Dysfunction of both eustachian tubes - ICD9: 381.81, ICD10: H69.83 (primary diagnosis) Try fluticasone and steroid -follow up with primary care if symptoms persist - METHYLPREDNISOLONE 4 MG TABLETS IN A DOSE PACK - FLUTICASONE 50 MCG/ACTUATION NASAL SPRAY,SUSPENSION - METHYLPREDNISOLONE 4 MG TABLETS IN A DOSE PACK - FLUTICASONE 50 MCG/ACTUATION NASAL SPRAY,SUSPENSION 2. Vertigo - ICD9: 780.4, ICD10: R42 Suspect d/t current ETD -discussed vestibular exercises -f/u with pcp if s/s persist -discussed red flags and reasons for urgent f/u Prescription instructions reviewed with patient as applicable. Patient advised if symptoms do not improve or if symptoms worsen sooner, to contact the office for further evaluation by their primary care physician. Potential red flag symptoms discussed with the patient. Reviewed appropriate action plan to take if red flag symptoms occur. Patient agreeable to treatment plan. Sharon Novak APRN.MEDHAT Novak APRN.CNP 03/28/2018 3:31 PM Signed ASSESSMENT/PLAN: 1. Dysfunction of both eustachian tubes - ICD9: 381.81, ICD10: H69.83 (primary diagnosis) Try fluticasone and steroid -follow up with primary care if symptoms persist - METHYLPREDNISOLONE 4 MG TABLETS IN A DOSE PACK - FLUTICASONE 50 MCG/ACTUATION NASAL SPRAY,SUSPENSION Benign Paroxysmal Positional Vertigo (BPPV) What is BPPV? Benign Paroxysmal Positional Vertigo (BPPV) is an inner ear disorder in which changes to the position of the head, such as tipping the head backward, lead to sudden vertigo -- a feeling that the room is spinning. Vertigo can vary in intensity from mild to severe and usually lasts only a few minutes. It may be accompanied by other symptoms, including ? dizziness ? lightheadedness ? a sense of imbalance ? nausea ? vomiting Anatomy of the right inner ear. Particle repositioning therapy moves the otoconia out of the semicircular canals and into the utricle where they dissolve naturally. BPPV is not a sign of a serious problem, and it usually disappears on its own within 6 weeks of the first episode. However, the symptoms of BPPV can be very frightening and may be dangerous, especially in older individuals. The unsteadiness associated with BPPV can lead to falls. About half of all people over age 65 experience an episode of BPPV, and falls are a leading cause of fractures in this age-range. What causes BPPV? BPPV develops when calcium carbonate crystals, which are known as otoconia, shift into and become trapped within the semicircular canals (one of the vestibular organs of the inner ear that controls balance). The otoconia make up a normal part of the structure of the utricle, a vestibular organ next to the semicircular canals. (see illustration to the right.) In the utricle, the otoconia may be loosened as a result of injury, infection, or age, and they land in a sac -- the utricle -- where they are naturally dissolved. However, otoconia in the semicircular canals will not dissolve. As a person?s head position changes, the otoconia begin to roll around and push on the tiny hairs that line the semicircular canals. Those hairs act as sensors to give the brain information about balance. Vertigo develops when the hairs are stimulated by the rolling otoconia. What head positions trigger BPPV? Movements that can trigger an episode of BPPV include rolling over or sitting up in bed, bending the head forward to look down, or tipping the head backward. In most people, only a single ear is affected by BPPV, although both ears may be involved on occasion. How is BPPV diagnosed and treated? With advances in medical technology, BPPV can easily be diagnosed and treated. The diagnosis can usually be made in the office based on medical history and a physical exam. Treatment also involves a short, simple in-office procedure known as the particle repositioning maneuver. (See addendum below.) How can I identify the affected side? Steps to determine affected side: 1. Sit on bed so that if you lie down, your head hangs slightly over the end of the bed. 2. Turn head to the right and lie back quickly. 3. Wait 1 minute. 4. If you feel dizzy, then the right ear is your affected ear. 5. If no dizziness occurs, sit up. 6. Wait 1 minute. 7. Turn head to the left and lie back quickly. 8. Wait 1 minute. 9. If you feel dizzy, then the left ear is your affected ear. How successful is the treatment? A single particle repositioning procedure is effective in treating about 80% to 90% of cases of BPPV. Additional exercise or repositioning maneuvers may be needed if symptoms persist. Can BPPV recur? If so, what can I do? A new episode of BPPV can develop after successful treatment -- on average there is a 15 percent rate of recurrence each year. However, it may be possible to treat recurrent BPPV at home by performing a series of movements at the time an episode occurs. Patients will receive information on ways to handle recurrences on their own or they can work with a physical therapist to develop a plan. In general, if you wake up with positional vertigo, slowly move into the [id number] position and wait for a minute. Next, slowly move into a face-down position and slide to the foot of the bed. Keep your head down until you reach the end of the bed and are kneeling or standing on the floor. Slowly bring your head backward into an upright position. Hold on to the bed at all times. Another method is to sit toward the foot of the bed, leaving enough room to lay back with your head resting comfortably at the end of the bed, slightly extended. Be careful not to overextend your neck, as this may aggravate existing neck problems. If your symptoms are severe, you may need assistance to complete the maneuver. Follow the same steps as described in the boxed instructions on the next page. Without treatment, the symptoms of BPPV may worsen. However, with time, the otoconia dissolve on their own, which is usually within 6 weeks. Until the time the otoconia dissolve on their own, the number and severity of episodes may be reduced simply by paying careful attention to head position. In addition, anti-motion sickness drugs can be given to control nausea. However, before drugs are taken, it is usually best to try the particle repositioning procedure first. It is a very safe and rapid way to relieve symptoms and reduce the chance for falls. Medications should not be taken for a long period of time. ADDENDUM Particle repositioning procedure: Tvld-ds-[id number] instructions The particle repositioning procedure takes about 15 minutes to complete and involves a series of physical movements that change the position of the head and body. These actions shift the otoconia out of the semicircular canals and back into their proper location in the utricle. The particle repositioning procedure begins with the patient is sitting up and then lying down on a treatment table. The procedure is very easy to perform. Patients should wear comfortable clothing that will allow them to move freely. Hold each of the following positions for 1 to 2 minutes. Step 1: Turn your head toward your affected ear. Step 2: Lay back quickly. Hold. Step 3: Keep your head back against the bed and turn it toward the good ear. Hold. Step 4: Roll onto your side with your good ear down. Your nose should be turned toward the floor. Hold. Step 5: Sit up, keeping your chin tucked in toward your shoulder. Hold. When you end, you should be sitting over the side of your bed so your feet touch the floor. Step 6: Follow your post-particle repositioning instructions. ? BPPV: Glossary of Terms ? Semicircular canals: These structures act like a gyroscope, with canals positioned in three dimensions -- upward, downward, and horizontal. Together, the canals send signals to the brain about the rotation/positioning of the head (for example, when you bend over or spin around.) ? Cupula: Detects the flow of fluid within the semicircular canals. The flow of fluid gives the body a sense of motion. ? Utricle: An organ located in the inner ear that helps control balance. The utricle contains hair cells, which are covered with otoconia. The otoconia sway with gravity, sending signals to the brain about the position of the head and body (upright, tilted, etc). ? Otoconia: The tiny calcium crystal particles that become dislodged from within the utricle (where they can dissolve) and move into the semicircular canals (where they can?t dissolve). ? Cochlea: The 'snail-shell' sense organ of the inner ear that translates sound into nerve impulses and sent to the brain. References ? Sheila BT, Alejandro LB. Lucas KNAPP. Peripheral Vestibular Disorders. In: [facility] Head [facility] Neck [facility], 3-Volume Set. Carlos; 2014. ? Harvey Haddad. Benign Paroxysmal Positional Vertigo (BPPV): History, Pathophysiology, Office Treatment and Future Directions. International Journal of Otolaryngology. 2011;2011:336951. ? Su JS, Neli SHAH. Clinical practice. Benign paroxysmal positional vertigo. N Engl J Med. 2014 Jul 26;370(12):1138-47. ? Viktoria RF, Cosmo DD, Dionte M, Szot JF. The Head and Neck. In: Viktoria RF, Cosmo DD, Dionte M, Dawit BOWLING. eds. DeGowin?s Diagnostic Examination, 10e. [place], [place]: [facility]; 2015. ?Copyright 7295-8783 The [facility]. All rights reserved This information is provided by the [facility] and is not intended to replace the medical advice of your doctor or health care provider. Please consult your health care provider for advice about a specific medical condition. For additional health information, please contact the [facility] [employer] [facility] at the [facility] or toll-free extension [phone]. If you prefer, you may visit [email or web address] or [email or web address]. This document was last reviewed on: 2014 index#80801 Referring Provider: SELF [200] Allergies As of Date: 03/28/2018 Noted Allergy Reaction AMOXICILLIN 01/05/2017 2 - Rash Date Reviewed: 03/28/2018 Reviewed by: Sharon Novak - Fully Assessed Reason for Visit: Ear Pain [817] Cmt: bilateral and dizziness x 5 days Primary Visit Diagnosis:Dysfunction of both eustachian tubes [H69.83] Other Visit Diagnosis:Vertigo [R42] Order(s):methylPREDNI Solone (MEDROL, IDA,) 4 mg Dose-PackFollow dosing instructions, take with food.Disp: 1 PackageRfl: 0 fluticasone (FLONASE) 50 mcg/actuation nasal sprayUse 2 Sprays in each nostril once daily. Rinse mouth after use.Disp: 1 BottleRfl: 0 Prescriptions as of 03/28/2018 Sig: TRINESSA (28) ORAL Take by mouth. METHYLPHENIDATE 10 MG TABLET Take 10 mg by mouth one time * METHYLPHENIDATE 5 MG TABLET Take 5 mg by mouth one time o* METHYLPREDNISOLONE 4 MG TABLE* Follow dosing instructions, t* FLUTICASONE 50 MCG/ACTUATION * Use 2 Sprays in each nostril * CYCLOBENZAPRINE 10 MG TABLET Take 1 tablet by mouth three * Patient not taking: Reported on 03/28/2018 Problem List As Of Date: 03/28/2018 (None) Other instructions from your clinician: ASSESSMENT/PLAN: 1. Dysfunction of both eustachian tubes - ICD9: 381.81, ICD10: H69.83 (primary diagnosis) Try fluticasone and steroid -follow up with primary care if symptoms persist - METHYLPREDNISOLONE 4 MG TABLETS IN A DOSE PACK - FLUTICASONE 50 MCG/ACTUATION NASAL SPRAY,SUSPENSION Benign Paroxysmal Positional Vertigo (BPPV) What is BPPV? Benign Paroxysmal Positional Vertigo (BPPV) is an inner ear disorder in which changes to the position of the head, such as tipping the head backward, lead to sudden vertigo -- a feeling that the room is spinning. Vertigo can vary in intensity from mild to severe and usually lasts only a few minutes. It may be accompanied by other symptoms, including ? dizziness ? lightheadedness ? a sense of imbalance ? nausea ? vomiting Anatomy of the right inner ear. Particle repositioning therapy moves the otoconia out of the semicircular canals and into the utricle where they dissolve naturally. BPPV is not a sign of a serious problem, and it usually disappears on its own within 6 weeks of the first episode. However, the symptoms of BPPV can be very frightening and may be dangerous, especially in older individuals. The unsteadiness associated with BPPV can lead to falls. About half of all people over age 65 experience an episode of BPPV, and falls are a leading cause of fractures in this age-range. What causes BPPV? BPPV develops when calcium carbonate crystals, which are known as otoconia, shift into and become trapped within the semicircular canals (one of the vestibular organs of the inner ear that controls balance). The otoconia make up a normal part of the structure of the utricle, a vestibular organ next to the semicircular canals. (see illustration to the right.) In the utricle, the otoconia may be loosened as a result of injury, infection, or age, and they land in a sac -- the utricle -- where they are naturally dissolved. However, otoconia in the semicircular canals will not dissolve. As a person?s head position changes, the otoconia begin to roll around and push on the tiny hairs that line the semicircular canals. Those hairs act as sensors to give the brain information about balance. Vertigo develops when the hairs are stimulated by the rolling otoconia. What head positions trigger BPPV? Movements that can trigger an episode of BPPV include rolling over or sitting up in bed, bending the head forward to look down, or tipping the head backward. In most people, only a single ear is affected by BPPV, although both ears may be involved on occasion. How is BPPV diagnosed and treated? With advances in medical technology, BPPV can easily be diagnosed and treated. The diagnosis can usually be made in the office based on medical history and a physical exam. Treatment also involves a short, simple in-office procedure known as the particle repositioning maneuver. (See addendum below.) How can I identify the affected side? Steps to determine affected side: 1. Sit on bed so that if you lie down, your head hangs slightly over the end of the bed. 2. Turn head to the right and lie back quickly. 3. Wait 1 minute. 4. If you feel dizzy, then the right ear is your affected ear. 5. If no dizziness occurs, sit up. 6. Wait 1 minute. 7. Turn head to the left and lie back quickly. 8. Wait 1 minute. 9. If you feel dizzy, then the left ear is your affected ear. How successful is the treatment? A single particle repositioning procedure is effective in treating about 80% to 90% of cases of BPPV. Additional exercise or repositioning maneuvers may be needed if symptoms persist. Can BPPV recur? If so, what can I do? A new episode of BPPV can develop after successful treatment -- on average there is a 15 percent rate of recurrence each year. However, it may be possible to treat recurrent BPPV at home by performing a series of movements at the time an episode occurs. Patients will receive information on ways to handle recurrences on their own or they can work with a physical therapist to develop a plan. In general, if you wake up with positional vertigo, slowly move into the [id number]-[id number]-pqca position and wait for a minute. Next, slowly move into a face-down position and slide to the foot of the bed. Keep your head down until you reach the end of the bed and are kneeling or standing on the floor. Slowly bring your head backward into an upright position. Hold on to the bed at all times. Another method is to sit toward the foot of the bed, leaving enough room to lay back with your head resting comfortably at the end of the bed, slightly extended. Be careful not to overextend your neck, as this may aggravate existing neck problems. If your symptoms are severe, you may need assistance to complete the maneuver. Follow the same steps as described in the boxed instructions on the next page. Without treatment, the symptoms of BPPV may worsen. However, with time, the otoconia dissolve on their own, which is usually within 6 weeks. Until the time the otoconia dissolve on their own, the number and severity of episodes may be reduced simply by paying careful attention to head position. In addition, anti-motion sickness drugs can be given to control nausea. However, before drugs are taken, it is usually best to try the particle repositioning procedure first. It is a very safe and rapid way to relieve symptoms and reduce the chance for falls. Medications should not be taken for a long period of time. ADDENDUM Particle repositioning procedure: Nfut-ub-anph instructions The particle repositioning procedure takes about 15 minutes to complete and involves a series of physical movements that change the position of the head and body. These actions shift the otoconia out of the semicircular canals and back into their proper location in the utricle. The particle repositioning procedure begins with the patient is sitting up and then lying down on a treatment table. The procedure is very easy to perform. Patients should wear comfortable clothing that will allow them to move freely. Hold each of the following positions for 1 to 2 minutes. Step 1: Turn your head toward your affected ear. Step 2: Lay back quickly. Hold. Step 3: Keep your head back against the bed and turn it toward the good ear. Hold. Step 4: Roll onto your side with your good ear down. Your nose should be turned toward the floor. Hold. Step 5: Sit up, keeping your chin tucked in toward your shoulder. Hold. When you end, you should be sitting over the side of your bed so your feet touch the floor. Step 6: Follow your post-particle repositioning instructions. ? BPPV: Glossary of Terms ? Semicircular canals: These structures act like a gyroscope, with canals positioned in three dimensions -- upward, downward, and horizontal. Together, the canals send signals to the brain about the rotation/positioning of the head (for example, when you bend over or spin around.) ? Cupula: Detects the flow of fluid within the semicircular canals. The flow of fluid gives the body a sense of motion. ? Utricle: An organ located in the inner ear that helps control balance. The utricle contains hair cells, which are covered with otoconia. The otoconia sway with gravity, sending signals to the brain about the position of the head and body (upright, tilted, etc). ? Otoconia: The tiny calcium crystal particles that become dislodged from within the utricle (where they can dissolve) and move into the semicircular canals (where they can?t dissolve). ? Cochlea: The 'snail-shell' sense organ of the inner ear that translates sound into nerve impulses and sent to the brain. References ? Sheila BT, Alejandro LB. Lucas KNAPP. Peripheral Vestibular Disorders. In: [facility], Head and Neck Surgery, 3-Volume Set. Carlos; 2014. ? Harvey Haddad. Benign Paroxysmal Positional Vertigo (BPPV): History, Pathophysiology, Office Treatment and Future Directions. International Journal of Otolaryngology. 2011;2011:610742. ? Su JS, Neli SHAH. Clinical practice. Benign paroxysmal positional vertigo. N Engl J Med. 2013Jul 26;370(12):1138-47. ? Cosmo Ballesteros DD, Dionte Segovia, Dawit BOWLING. The Head and Neck. In: Cosmo Ballesteros DD, Dionte Segovia, Dawit BOWLING. eds. DeGowin?s Diagnostic Examination, 10e. [place], [place]: [facility]; 2015. ?Copyright 0091-0875 The [facility]. All rights reserved This information is provided by the [facility] and is not intended to replace the medical advice of your doctor or health care provider. Please consult your health care provider for advice about a specific medical condition. For additional health information, please contact the [facility] Information at the [facility] or toll-free extension [phone]. If you prefer, you may visit [email or web address] or [email or web address]. This document was last reviewed on: 2014 index#53760 Prescriptions ordered this encounter Disp Refills Start End METHYLPREDNISOLONE 4 MG TABLETS IN A* 1 Pa* 0 03/28/2018 04/03/2018 Sig: Follow dosing instructions, take with food. FLUTICASONE 50 MCG/ACTUATION NASAL S* 1 Andrew* 0 03/28/2018 Route: EACH NOSTRIL Sig: Use 2 Sprays in each nostril once daily. Rinse mouth after use. Encounter Status:Closed by SHARON NOVAK CNP on 03/28/18 Normal [facility] PROGRESSon 03-28-2018 Protein mass conc HNO ID: [id number] Author: Sharon (Medhat) Service: (none) Author Type: Nurse Practitioner Type: Progress Notes Filed: 03/28/2018 3:59 PM Note Text: Subjective HPI HPI Shari WALLACE is a 27 year old female who presents today for CC of bilateral ear pain, dizziness. This started 5 days ago. Has tried otc medication. Symptoms are worsened by positional changes. Risk factors none. Denies possibility of being . nonsmoker. Has environmental allergies, have been getting progressively worse. .Patient presents with: Ear Pain: bilateral and dizziness x 5 days No past medical history on file. No past surgical history on file. ALLERGIES Amoxicillin -This section reviewed with patient, no changes MEDICATIONS NORGESTIMATE-ETHINYL ESTRADIOL (TRINESSA, 28, ORAL) Take by mouth. methylphenidate (RITALIN) 10 mg tablet Take 10 mg by mouth one time only. In AM methylphenidate (RITALIN) 5 mg tablet Take 5 mg by mouth one time only. In PM cyclobenzaprine (FLEXERIL) 10 mg tablet Take 1 tablet by mouth three times daily as needed for Muscle Spasm. No family history on file. Social History Substance Use Topics - Smoking status: Never Smoker - Smokeless tobacco: Never Used - Alcohol use Not on file Review of Systems Constitutional: Negative for chills, fever and weight loss. HENT: Positive for congestion and sore throat. Negative for ear pain and nosebleeds. Respiratory: Positive for cough. Negative for shortness of breath and wheezing. Musculoskeletal: Negative for neck pain. Objective Blood pressure 120/74, pulse 76, temperature 36.4 ?C (97.5 ?F), temperature source Tympanic, resp. rate 16, weight 79.4 kg (175 lb), last menstrual period 03/20/2018. Physical Exam Constitutional: She is oriented to person, place, and time and well-developed, well-nourished, and in no distress. Non-toxic appearance. She does not have a sickly appearance. No distress. HENT: Head: Normocephalic and atraumatic. Right Ear: Hearing, external ear and ear canal normal. Tympanic membrane is bulging (mild, clear fluid behind). Tympanic membrane is not perforated and not erythematous. Left Ear: Hearing, external ear and ear canal normal. Tympanic membrane is bulging (mild, clear fluid behind). Tympanic membrane is not perforated and not erythematous. Nose: Nose normal. Mouth/Throat: Uvula is midline, oropharynx is clear and moist and mucous membranes are normal. Eyes: Pupils are equal, round, and reactive to light. Conjunctivae and lids are normal. Right eye exhibits no discharge. Left eye exhibits no discharge. No scleral icterus. Neck: Trachea normal and normal range of motion. Neck supple. Cardiovascular: Normal rate, regular rhythm and normal heart sounds. Pulmonary/Chest: Effort normal and breath sounds normal. Lymphadenopathy: She has no cervical adenopathy. Neurological: She is alert and oriented to person, place, and time. She has normal sensation, normal strength, normal reflexes and intact cranial nerves. She is not disoriented. She displays no weakness and facial symmetry. She exhibits normal muscle tone. Gait normal. Gait normal. Reflex Scores: Bicep reflexes are 2+ on the right side and 2+ on the left side. Patellar reflexes are 2+ on the right side and 2+ on the left side. Skin: No rash noted. She is not diaphoretic. ASSESSMENT/PLAN: 1. Dysfunction of both eustachian tubes - ICD9: 381.81, ICD10: H69.83 (primary diagnosis) Try fluticasone and steroid -follow up with primary care if symptoms persist - METHYLPREDNISOLONE 4 MG TABLETS IN A DOSE PACK - FLUTICASONE 50 MCG/ACTUATION NASAL SPRAY,SUSPENSION - METHYLPREDNISOLONE 4 MG TABLETS IN A DOSE PACK - FLUTICASONE 50 MCG/ACTUATION NASAL SPRAY,SUSPENSION 2. Vertigo - ICD9: 780.4, ICD10: R42 Suspect d/t current ETD -discussed vestibular exercises -f/u with pcp if s/s persist -discussed red flags and reasons for urgent f/u Prescription instructions reviewed with patient as applicable. Patient advised if symptoms do not improve or if symptoms worsen sooner, to contact the office for further evaluation by their primary care physician. Potential red flag symptoms discussed with the patient. Reviewed appropriate action plan to take if red flag symptoms occur. Patient agreeable to treatment plan. Sharon Novak APRN.VICE PRESIDENT PAYER Normal [facility] Vital Signs Date Time Vital Sign Value Performing Clinician Mariana tran 07-09-2024 08:31-0500 Body height 172.[address] Lila Santos MD Work Phone: [facility] 07-09-2024 08:28-0500 Body mass index (BMI) [Ratio] 34.3 kg/m2 Dr. Lila Santos MD Work Phone: [facility] 07-09-2024 08:28-0500 Body weight 102.[address] Lila Santos MD Work Phone: [facility] 07-09-2024 08:28-0500 Diastolic blood pressure 82 mm[Hg] Dr. Lila Santos MD Work Phone: [facility] 07-09-2024 08:28-0500 Systolic blood pressure 110 mm[Hg] Dr. Lila Santos MD Work Phone: [facility] 04-14-2024 08:17-0500 Body mass index (BMI) [Ratio] 35.9 kg/m2 Dr. Lila Santos MD Work Phone: [facility] 04-14-2024 08:17-0500 Body temperature 98.2 [degF] Dr. Lila Santos MD Work Phone: [facility] 04-14-2024 08:17-0500 Body weight 107.[address] Lila Santos MD Work Phone: [facility] 04-14-2024 08:17-0500 Diastolic blood pressure 80 mm[Hg] Dr. Lila Santos MD Work Phone: [facility] 04-14-2024 08:17-0500 Heart rate 85 /min Dr. Lila Santos MD Work Phone: [facility] 04-14-2024 08:17-0500 SaO2% (BldA) [Mass fraction] 98 % Dr. Lila Santos MD Work Phone: [facility] 04-14-2024 08:17-0500 Systolic blood pressure 124 mm[Hg] Dr. Lila Santos MD Work Phone: [facility] 04-09-2024 09:13-0500 Body mass index (BMI) [Ratio] 35.6 kg/m2 Dr. Lila Santos MD Work Phone: [facility] 04-09-2024 09:13-0500 Body weight 106.[address] Lila Santos MD Work Phone: [facility] 04-09-2024 09:13-0500 Diastolic blood pressure 82 mm[Hg] Dr. Lila Santos MD Work Phone: [facility] 04-09-2024 09:13-0500 Systolic blood pressure 112 mm[Hg] Dr. Lila Santos MD Work Phone: [facility] 08-02-2023 10:23-0400 Body height 172.[address] Lila Santos Work Phone: [facility] 08-02-2023 10:23-0400 Body mass index (BMI) [Ratio] 35.6 kg/m2 Dr. Lila Santos Work Phone: [facility] 08-02-2023 10:23-0400 Body temperature 99.6 [degF] Dr. Lila Santos Work Phone: [facility] 08-02-2023 10:23-0400 Body weight 106.[address] Lila Santos Work Phone: [facility] 08-02-2023 10:23-0400 Diastolic blood pressure 82 mm[Hg] Dr. Lila Santos Work Phone: [facility] 08-02-2023 10:23-0400 Heart rate 92 /min Dr. Lila Santos Work Phone: [facility] 08-02-2023 10:23-0400 Respiratory rate 14 /min Dr. Lila Santos Work Phone: [facility] 08-02-2023 10:23-0400 SaO2% (BldA) [Mass fraction] 98 % Dr. Lila Santos Work Phone: [facility] 08-02-2023 10:23-0400 Systolic blood pressure 118 mm[Hg] Dr. Lila Santos Work Phone: [facility] 01-13-2023 13:00-0400 Body temperature 98.2 [degF] Dr. Lila Santos Work Phone: [facility] 01-13-2023 13:00-0400 Diastolic blood pressure 51 mm[Hg] Dr. Lila Santos Work Phone: [facility] 01-13-2023 13:00-0400 Heart rate 84 /min Dr. Lila Santos Work Phone: [facility] 01-13-2023 13:00-0400 Respiratory rate 16 /min Dr. Lila Santos Work Phone: [facility] 01-13-2023 13:00-0400 SaO2% (BldA) [Mass fraction] 97 % Dr. Lila Santos Work Phone: [facility] 01-13-2023 13:00-0400 Systolic blood pressure 118 mm[Hg] Dr. Lila Santos Work Phone: [facility] 01-10-2023 21:11-0400 Body height 172.[address] Lila Santos Work Phone: [facility] 01-10-2023 21:11-0400 Body mass index (BMI) [Ratio] 37.3 kg/m2 Dr. Lila Santos Work Phone: [facility] 01-10-2023 21:11-0400 Body weight 111.[address] Lila Santos Work Phone: [facility] 01-07-2023 10:44-0400 Body mass index (BMI) [Ratio] 37 kg/m2 Dr. Lila Santos Work Phone: [facility]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
== END | disposition home or self-care (01) ==
LOC: LAB 07:43
PROVIDERS: PCP Family Medicine; Referring Provider Podiatrist Foot & Ankle Surgery; Visit Provider Podiatrist Foot & Ankle Surgery
DX: M77.42 Metatarsalgia, left foot (principal); M79.672 Pain in left foot